=== PATIENT | female | born 1930 | race Caucasian/White ===

== ENCOUNTER 2017-03-19 13:08 | Emergency (ER) | payer MEDICARE, OTHER ==
[2017-03-19 13:31] VITALS: BP 134/60
--- NOTE | 2017-03-19 14:35 | EDM.PDOC ---
ED HPI GENERAL MEDICAL PROBLEM - General Chief Complaint: Lower Extremity Injury/Pain Stated Complaint: BILATERAL HIP PAIN Time Seen by Provider: 03/19/17 14:35 Source of Information: Reports: Patient, Family History Limitations: Reports: No Limitations - History of Present Illness INITIAL COMMENTS - FREE TEXT/NARRATIVE: pt had a hip fracture and Dr Deleon did surgery for that. Since the surgery she has had on going pain. She tends to favor thre rt hip and is stressing the left. She now has severe pain in the left hip. She is having trouble walking. Onset: Gradual Duration: Day(s): Location: Reports: Lower Extremity, Left, Lower Extremity, Right Associated Symptoms: Reports: No Other Symptoms Bilateral Hip Pain Score (Numeric/FACES): 5 - Related Data Allergies Allergy/AdvReac Type Severity Reaction Status Date / Time atorvastatin calcium Allergy Muscle Verified 03/19/17 13:38 [From Lipitor] Aches simvastatin Allergy Muscle Verified 03/19/17 13:38 Aches Home Meds: Home Meds Metoprolol Tartrate [Lopressor] 50 mg PO DAILY 11/03/13 [History] Nitroglycerin [Nitrostat] 0.4 mg SL ASDIRECTED PRN 11/03/13 [History] Furosemide [Furosemide] 40 mg PO DAILY 03/19/17 [History] Spironolactone [Spironolactone] 25 mg PO BID 03/19/17 [History] Past Medical History HEENT History: Reports: Cataract, Hard of Hearing Cardiovascular History: Reports: CAD, High Cholesterol, Hypertension, [place], Stents Other Cardiovascular History: stents placed in 2008 Gastrointestinal History: Reports: Chronic Constipation Genitourinary History: Reports: Urinary Incontinence 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: Musculoskeletal History: Reports: Back Pain, Chronic, Fracture, Osteoarthritis Other Musculoskeletal History: both ankles and wrist fractured in remote past Hematologic History: Reports: Anemia - Past Surgical History HEENT Surgical History: Reports: Cataract Surgery, Tonsillectomy Cardiovascular Surgical History: Reports: Coronary Artery Stent, Percutaneous Transluminal Angioplasty Musculoskeletal Surgical History: Reports: Hip Replacement Other Musculoskeletal Surgeries/Procedures:: right hip she states they put a new ball in Social & Family History - Tobacco Use Smoking Status *Q: Never Smoker Second Hand Smoke Exposure: No - Caffeine Use Caffeine Use: Reports: Coffee - Recreational Drug Use Recreational Drug Use: No Review of Systems - Review of Systems Review Of Systems: See Below Constitutional: Reports: No Symptoms Eyes: Reports: No Symptoms Ears: Reports: No Symptoms Nose: Reports: No Symptoms Mouth/Throat: Reports: No Symptoms Respiratory: Reports: No Symptoms Cardiovascular: Reports: No Symptoms GI/Abdominal: Reports: No Symptoms Genitourinary: Reports: No Symptoms Musculoskeletal: Reports: Other (pain in both hips. ) Skin: Reports: No Symptoms ED EXAM, GENERAL - Physical Exam Exam: See Below Free Text/Narrative:: Pt arrived with pain in both hips. She had surgery on the rt and has had chronic pain in the rt and she is over stressing the left and she has pain in that also. Exam Limited By: No Limitations General Appearance: Alert, Mild Distress Ears: Normal TMs Nose: Normal Inspection Throat/Mouth: Normal Inspection Head: Atraumatic Neck: Normal Inspection Respiratory/Chest: No Respiratory Distress Cardiovascular: Regular Rate, Rhythm GI/Abdominal: Soft Extremities: Other ( Both hips are tender to palpate. She had xrays which did not show sig abnormalities. ) Course - Vital Signs Last Recorded V/S: Last Vital Signs Temp 36.3 C 03/19/17 13:35 Pulse 72 03/19/17 13:35 Resp 14 03/19/17 13:35 BP 134/60 03/19/17 13:35 Pulse Ox 95 03/19/17 13:35 - Orders/Labs/Meds Labs: Laboratory Tests 03/19/17 03/19/17 Range/Units 15:14 15:14 WBC 6.9 (4.5-11.0) K/uL RBC 4.51 (3.30-5.50) M/uL Hgb 14.1 (12.0-15.0) g/dL Hct 41.5 (36.0-48.0) % MCV 92 (80-98) fL MCH 31 (27-31) pg MCHC 34 (32-36) % Plt Count 242 (150-400) K/uL Neut % (Auto) 69 H (36-66) % Lymph % (Auto) 15 L (24-44) % [place] % (Auto) 12 H (2-6) % Eos % (Auto) 4 (2-4) % Baso % (Auto) 1 (0-1) % Sodium 135 L (140-148) mmol/L Potassium 4.2 (3.6-5.2) mmol/L Chloride 101 (100-108) mmol/L Carbon Dioxide 29 (21-32) mmol/L Anion Gap 9.2 (5.0-14.0) mmol/L BUN 16 (7-18) mg/dL Creatinine 0.6 (0.6-1.0) mg/dL Est Cr Clr Drug Dosing 60.27 mL/min Estimated GFR (MDRD) > 60 (>60) Glucose 88 (74-106) mg/dL Calcium 9.3 (8.5-10.1) mg/dL Meds: Medications Discontinued Medications Generic Name Dose Route Start Last Admin Trade Name Freq PRN Reason Stop Dose Admin Ketorolac Tromethamine 60 mg 03/19/17 15:05 Toradol IM 03/19/17 15:06 ONETIME ONE - Re-Assessments/Exams Free Text/Narrative Re-Assessment/Exam: 03/19/17 15:52 pt was given tordol 60mg. Departure - Departure Time of Disposition: 15:52 Disposition: Home, Self-Care 01 Condition: Fair Clinical Impression: Left hip pain - Discharge Information Forms: ED Department Discharge Care Plan Goals: moist heat to the left hip, naprosyn 500mg bid, appt with Dr Suh for bilateral hip pain.
--- NOTE | 2017-03-19 14:56 | CR ---
Hip Min 2V w Pelvis Bi HISTORY: Hip pain bilaterally. COMPARISON: Plain films 03/23/2016. FINDINGS: Total right hip arthroplasty change. There is excellent alignment. No pelvic fracture or d iastases. Left hip appears unremarkable. Impression: No acute fracture in the hips or pelvis.
[2017-03-19] MEDS ORDERED: Ketorolac 60 MG/2 ML SDV IM ONE (15:05)
== END 2017-03-19 16:16 | disposition home or self-care (01) ==
LOC: JP.ED 13:08
DX: M25.552 Pain in left hip (principal); M25.551 Pain in right hip; I25.10 Atherosclerotic heart disease of native coronary artery without angina pectoris; I10 Essential (primary) hypertension; E78.00 Pure hypercholesterolemia, unspecified; I25.2 Old myocardial infarction; Z98.49 Cataract extraction status, unspecified eye; Z98.890 Other specified postprocedural states; Z96.649 Presence of unspecified artificial hip joint; Z79.899 Other long term (current) drug therapy; Z88.8 Allergy status to other drugs, medicaments and biological substances
CPT/HCPCS: 36415; 73521; 80048; 85025; 96372; 99283; 99284; J1885

== ENCOUNTER 2018-03-07 11:02 | Emergency (ER) | payer MEDICARE, OTHER ==
[2018-03-07 12:13] VITALS: BP 128/58
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
== END 2018-03-07 15:33 | disposition home or self-care (01) ==
LOC: JP.ED 11:02
DX: S20.319A Abrasion of unspecified front wall of thorax, initial encounter (principal); I25.10 Atherosclerotic heart disease of native coronary artery without angina pectoris; E78.00 Pure hypercholesterolemia, unspecified; I10 Essential (primary) hypertension; I25.2 Old myocardial infarction; V49.40XA Driver injured in collision with unspecified motor vehicles in traffic accident, initial encounter; Z88.8 Allergy status to other drugs, medicaments and biological substances; Z79.899 Other long term (current) drug therapy
CPT/HCPCS: 71250; 72131; 74176; 93005; 99284; 99284-25

== ENCOUNTER 2018-03-15 08:00 | Inpatient (IN) | payer MEDICARE, OTHER ==
[2018-03-15] MEDS ORDERED: Sodium Chloride 0.9% 1,000 ML IV SCH (08:45)
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
[2018-03-15] MEDS ORDERED: cefTRIAXone 1 GM in Sodium Chloride 0.9% 50 ML IV ONE (09:28)
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
[2018-03-15] MEDS ORDERED: Azithromycin 250 MG Tab PO ONE (11:00)
[2018-03-15] MEDS ORDERED: Ondansetron 4 MG Tab.DIS PO PRN (11:31)
[2018-03-15] MEDS ORDERED: Albuterol 0.083% 2.5 MG/3 ML Neb Soln NEB PRN (11:31)
[2018-03-15] MEDS ORDERED: traMADol 50 MG Tab PO PRN (11:31)
[2018-03-15] MEDS ORDERED: guaiFENesin/Dextromethorphan 100-10 MG/5 ML Soln 10 ML Cup PO PRN (11:31)
[2018-03-15] MEDS ORDERED: Ondansetron 4 MG/2 ML SDV IV PRN (11:31)
[2018-03-15] MEDS: Acetaminophen 325 MG Tab PO PRN (14:51)
[2018-03-15] MEDS: Sodium Chloride 0.9% 1,000 ML IV SCH ×3 (14:52→23:30)
[2018-03-15] MEDS ORDERED: Metoprolol Tartrate 5 MG/5 ML SDV IVPUSH ONE (23:44)
[2018-03-16] MEDS: Acetaminophen 325 MG Tab PO PRN ×2 (00:16→15:50)
[2018-03-16] MEDS: Metoprolol Tartrate 50 MG Tab PO SCH (08:11)
[2018-03-16] MEDS: Polyethylene Glycol 3350 Powder 17 GM Packet PO SCH (08:12)
[2018-03-16] MEDS: Azithromycin 250 MG Tab PO SCH (08:12)
--- NOTE | 2018-03-16 09:29 | CR ---
CHEST: 2 view CLINICAL HISTORY:Dyspnea COMPARISON:CT 07 March 2018 FINDINGS: There are patchy bilateral lower lobe densities There is a moderate compression deformity o f a lower dorsal vertebrae present previously described.. There are moderate patchy bibasal densities . The some of this was present on the prior CT but superimposed infiltrate is suspected. The heart is enlarged. There is a large retrocardiac hiatal hernia. There is some chronic elevation of the right hemidiaphragm. IMPRESSION: Moderate changes of COPD Patchy bibasal densities. Some of this was present on the left on prior CT. A right lower lobe infilt rate is not excluded Cardiomegaly Large retrocardiac hiatal hernia
[2018-03-16] MEDS ORDERED: cefTRIAXone 1 GM in Sodium Chloride 0.9% 50 ML IV SCH (11:00)
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
[2018-03-16] MEDS: Diltiazem IR 30 MG Tab PO SCH ×2 (13:50→19:46)
[2018-03-17] MEDS: Diltiazem IR 30 MG Tab PO SCH ×4 (02:43→19:21)
[2018-03-17] MEDS: Acetaminophen 325 MG Tab PO PRN ×2 (04:25→22:48)
[2018-03-17] MEDS ORDERED: Ibuprofen 400 MG Tab PO ONE ×2 (06:37→09:00)
[2018-03-17] MEDS: Azithromycin 250 MG Tab PO SCH (08:49)
[2018-03-17] MEDS: Metoprolol Tartrate 50 MG Tab PO SCH (08:50)
[2018-03-17] MEDS: Polyethylene Glycol 3350 Powder 17 GM Packet PO SCH (08:50)
[2018-03-17] MEDS ORDERED: Piperacillin/Tazobactam 3.375 GM in Sodium Chloride 0.9% 50 ML IV SCH (10:15)
[2018-03-17] MEDS ORDERED: Levofloxacin/Dextrose 5%-Water 750 MG in Premix Bag 1 BAG IV SCH (10:30)
--- NOTE | 2018-03-17 11:12 | CR ---
CHEST: Portable CLINICAL HISTORY:Hypoxia COMPARISON:03/15/2018 FINDINGS:Lung markings are exaggerated by portable 20 level.. There are increasing bilateral pulmona ry infiltrates. Vascularity is cephalized. There are increasing bilateral pleural effusions. Patient is a large retrocardiac hiatal hernia. There is a calcified mitral annulus IMPRESSION: Limited study due to poor story level. Vascular congestion with increasing infiltrates and bilateral pleural effusions. This is felt to rep resent CHF superimposed over chronic lung changes.
[2018-03-17] MEDS: Piperacillin/Tazobactam/Dext 3.375 GM in Premix Bag 1 BAG IV SCH ×3 (11:38→23:55)
[2018-03-17] MEDS ORDERED: Furosemide 40 MG/4 ML VIAL IVPUSH ONE ×2 (12:35→12:50)
[2018-03-17] MEDS: Norepinephrine 4 MG in Dextrose 5% in Water 246 ML IV SCH ×4 (13:15→20:35)
[2018-03-17] MEDS ORDERED: Sodium Chloride 0.9% 500 ML IV ONE (13:45)
[2018-03-17] MEDS ORDERED: Sodium Chloride 0.9% 500 ML IV STA (13:55)
[2018-03-17] MEDS: Sodium Chloride 0.9% 1,000 ML IV SCH (17:03)
--- NOTE | 2018-03-17 18:36 | PCM.PN ---
- General Info Date of Service: 03/17/18 Subjective Update: Ms. Lobato developed increased respiratory compromise and was transferred to the intensive care unit this morning, shortly after transfer developed acute respiratory arrest. She had requested DNR/DNI, so code was not called but she was bagged and then switched to BiPAP. At the time of arrest she had infrequent shallow respirations and was very cyanotic, heart rate was into the 30s with marked hypotension. She did receive fluids and because of ongoing hypotension was started on IV norepinephrine. With these interventions she is stabilized, now alert and interactive. Oxygenation has improved significantly with use of BiPAP and heart rate has stabilized. She continues to require norepinephrine to maintain adequate blood pressure. Lactic acid level was obtained and within normal range and this does appear to be all secondary to respiratory compromise. Troponin has been found to be elevated but this is likely secondary to demand ischemia in the setting of hypotension and hypoxia. She has denied any symptoms of chest pain or pressure, EKG shows no evidence of acute ST segment changes. - Review of Systems General: Reports: Fever, Weakness, Chills Pulmonary: Reports: Shortness of Breath. Denies: Cough, Sputum, Wheezing Cardiovascular: Denies: Chest Pain, Palpitations, Orthopnea, PND, Edema, Lightheadedness Gastrointestinal: Reports: No Symptoms - Patient Data Vitals - Most Recent: Last Vital Signs Temp 95.7 F 03/17/18 15:16 Pulse 80 03/17/18 16:40 Resp 22 H 03/17/18 16:40 BP 91/48 L 03/17/18 16:40 Pulse Ox 98 03/17/18 16:40 Weight - Most Recent: 121 lb 15.99 oz I&O - Last 24 Hours: Intake & Output 03/17/18 03/17/18 03/17/18 06:59 14:59 22:59 Intake Total 240 480 935 Output Total 200 Balance 240 480 735 Lab Results Last 24 Hours: Laboratory Results - last 24 hr 03/17/18 03/17/18 03/17/18 Range/Units 09:59 10:19 10:19 WBC 7.2 (4.5-11.0) K/uL RBC 4.52 (3.30-5.50) M/uL Hgb 13.3 (12.0-15.0) g/dL Hct 40.7 (36.0-48.0) % MCV 90 (80-98) fL MCH 29 (27-31) pg MCHC 33 (32-36) % Plt Count 85 L (150-400) K/uL Add Manual Diff Yes Neutrophils % (Manual) 89 H (36-66) % Band Neutrophils % 9 (5-11) % Lymphocytes % (Manual) 1 L (24-44) % Monocytes % (Manual) 1 L (2-6) % Puncture Site Lt radial ABG pH 7.285 L (7.350-7.450) ABG pCO2 51.5 H (35.0-42.0) mmHg ABG pO2 76.1 (75.0-100.0) mmHg ABG HCO3 23.7 (22.0-26.0) mmol/L ABG Total CO2 21.7 (21.0-25.0) mmol/L ABG O2 Saturation 93.9 L (95.0-98.0) % ABG O2 Content 17.4 (15.0-23.0) %vol ABG Base Excess -3.0 mm/L ABG Hemoglobin 13.5 (12.0-16.0) g/dL ABG Oxyhemoglobin 91.9 % ABG Carboxyhemoglobin 1.5 (0.0-1.6) % ABG Methemoglobin 0.6 % Rommel Test Passed O2 Delivery Device Nasal cannula Oxygen Flow Rate L Sodium 134 L (140-148) mmol/L Potassium 4.1 (3.6-5.2) mmol/L Chloride 99 L (100-108) mmol/L Carbon Dioxide 27 (21-32) mmol/L Anion Gap 12.1 (5.0-14.0) mmol/L BUN 18 (7-18) mg/dL Creatinine 0.9 (0.6-1.0) mg/dL Est Cr Clr Drug Dosing 39.75 mL/min Estimated GFR (MDRD) 60 (>60) Glucose 193 H (74-106) mg/dL Lactic Acid (0.4-2.0) mmol/L Calcium 8.4 L (8.5-10.1) mg/dL Magnesium (1.8-2.4) mg/dL Total Bilirubin 0.7 (0.2-1.0) mg/dL AST 115 H D (15-37) U/L ALT 84 H (12-78) U/L Alkaline Phosphatase 146 H (46-116) U/L Troponin I (0.000-0.056) ng/mL Total Protein 6.4 (6.4-8.2) g/dL Albumin 2.5 L (3.4-5.0) g/dL Globulin 3.9 H (2.3-3.5) g/dL Albumin/Globulin Ratio 0.6 L (1.2-2.2) 03/17/18 03/17/18 03/17/18 Range/Units 10:19 10:19 15:47 WBC (4.5-11.0) K/uL RBC (3.30-5.50) M/uL Hgb (12.0-15.0) g/dL Hct (36.0-48.0) % MCV (80-98) fL MCH (27-31) pg MCHC (32-36) % Plt Count (150-400) K/uL Add Manual Diff Neutrophils % (Manual) (36-66) % Band Neutrophils % (5-11) % Lymphocytes % (Manual) (24-44) % Monocytes % (Manual) (2-6) % Puncture Site Lt radial ABG pH 7.310 L (7.350-7.450) ABG pCO2 46.9 H (35.0-42.0) mmHg ABG pO2 150.0 H (75.0-100.0) mmHg ABG HCO3 22.9 (22.0-26.0) mmol/L ABG Total CO2 21.0 (21.0-25.0) mmol/L ABG O2 Saturation 98.9 H (95.0-98.0) % ABG O2 Content 17.9 (15.0-23.0) %vol ABG Base Excess -3.0 mm/L ABG Hemoglobin 12.8 (12.0-16.0) g/dL ABG Oxyhemoglobin 98.0 % ABG Carboxyhemoglobin 0.3 (0.0-1.6) % ABG Methemoglobin 0.6 % Rommel Test Passed O2 Delivery Device Nasal cannula Oxygen Flow Rate L Sodium (140-148) mmol/L Potassium (3.6-5.2) mmol/L Chloride (100-108) mmol/L Carbon Dioxide (21-32) mmol/L Anion Gap (5.0-14.0) mmol/L BUN (7-18) mg/dL Creatinine (0.6-1.0) mg/dL Est Cr Clr Drug Dosing mL/min Estimated GFR (MDRD) (>60) Glucose (74-106) mg/dL Lactic Acid 1.6 (0.4-2.0) mmol/L Calcium (8.5-10.1) mg/dL Magnesium 1.8 (1.8-2.4) mg/dL Total Bilirubin (0.2-1.0) mg/dL AST (15-37) U/L ALT (12-78) U/L Alkaline Phosphatase (46-116) U/L Troponin I (0.000-0.056) ng/mL Total Protein (6.4-8.2) g/dL Albumin (3.4-5.0) g/dL Globulin (2.3-3.5) g/dL Albumin/Globulin Ratio (1.2-2.2) 03/17/18 03/17/18 Range/Units 16:04 16:04 WBC (4.5-11.0) K/uL RBC (3.30-5.50) M/uL Hgb (12.0-15.0) g/dL Hct (36.0-48.0) % MCV (80-98) fL MCH (27-31) pg MCHC (32-36) % Plt Count (150-400) K/uL Add Manual Diff Neutrophils % (Manual) (36-66) % Band Neutrophils % (5-11) % Lymphocytes % (Manual) (24-44) % Monocytes % (Manual) (2-6) % Puncture Site ABG pH (7.350-7.450) ABG pCO2 (35.0-42.0) mmHg ABG pO2 (75.0-100.0) mmHg ABG HCO3 (22.0-26.0) mmol/L ABG Total CO2 (21.0-25.0) mmol/L ABG O2 Saturation (95.0-98.0) % ABG O2 Content (15.0-23.0) %vol ABG Base Excess mm/L ABG Hemoglobin (12.0-16.0) g/dL ABG Oxyhemoglobin % ABG Carboxyhemoglobin (0.0-1.6) % ABG Methemoglobin % Rommel Test O2 Delivery Device Oxygen Flow Rate L Sodium 134 L (140-148) mmol/L Potassium 3.8 (3.6-5.2) mmol/L Chloride 100 (100-108) mmol/L Carbon Dioxide 23 (21-32) mmol/L Anion Gap 14.8 H (5.0-14.0) mmol/L BUN 22 H (7-18) mg/dL Creatinine 1.2 H (0.6-1.0) mg/dL Est Cr Clr Drug Dosing 29.81 mL/min Estimated GFR (MDRD) 43 L (>60) Glucose 205 H (74-106) mg/dL Lactic Acid (0.4-2.0) mmol/L Calcium 8.4 L (8.5-10.1) mg/dL Magnesium (1.8-2.4) mg/dL Total Bilirubin (0.2-1.0) mg/dL AST (15-37) U/L ALT (12-78) U/L Alkaline Phosphatase (46-116) U/L Troponin I 0.849 H* (0.000-0.056) ng/mL Total Protein (6.4-8.2) g/dL Albumin (3.4-5.0) g/dL Globulin (2.3-3.5) g/dL Albumin/Globulin Ratio (1.2-2.2) Ismael Results Last 24 Hours: Microbiology 03/15/18 08:45 Aerobic Blood Culture - Preliminary Blood - Arm, Right NO GROWTH AFTER 2 DAYS Anaerobic Blood Culture - Preliminary NO GROWTH AFTER 2 DAYS 03/15/18 08:45 Aerobic Blood Culture - Preliminary Blood - Arm, Right NO GROWTH AFTER 2 DAYS Anaerobic Blood Culture - Preliminary NO GROWTH AFTER 2 DAYS Med Orders - Current: Current Medications Acetaminophen (Tylenol) 650 mg PO Q4H PRN PRN Reason: Pain (Mild 1-3)/fever Last Admin: 03/17/18 04:25 Dose: 650 mg Albuterol (Proventil Neb Soln) 2.5 mg NEB Q4H PRN PRN Reason: Shortness Of Breath/wheezing Last Admin: 03/15/18 22:41 Dose: 2.5 mg Diltiazem HCl (Cardizem) 30 mg PO Q6H [facility] Last Admin: 03/17/18 14:07 Dose: Not Given Guaifenesin/Dextromethorphan (Robitussin Dm) 10 ml PO Q6H PRN PRN Reason: Cough Levofloxacin/Dextrose 750 mg/ (Premix) 150 mls @ 100 mls/hr IV Q48H [facility] Last Admin: 03/17/18 10:42 Dose: 100 mls/hr Piperacillin/Tazobactam/ (Dextrose 3.375 gm/ Premix) 50 mls @ 100 mls/hr IV Q6H [facility] Last Admin: 03/17/18 17:02 Dose: 100 mls/hr Norepinephrine Bitartrate 4 mg (/ Dextrose/Water) 250 mls @ 7.5 mls/hr IV TITRATE [facility]; Protocol Last Titration: 03/17/18 15:24 Dose: 10 mcg/min, 37.5 mls/hr Metoprolol Tartrate (Lopressor) 50 mg PO DAILY [facility] Last Admin: 03/17/18 08:50 Dose: 50 mg Ondansetron HCl (Zofran Odt) 4 mg PO Q6H PRN PRN Reason: Nausea able to take PO Ondansetron HCl (Zofran) 4 mg IV Q6H PRN PRN Reason: Nausea/Vomiting Polyethylene Glycol (Miralax) 17 gm PO DAILY [facility] Last Admin: 03/17/18 08:50 Dose: 17 gm Tramadol HCl (Ultram) 50 mg PO Q6H PRN PRN Reason: Pain Discontinued Medications Azithromycin (Zithromax) 500 mg PO ONETIME ONE Stop: 03/15/18 11:01 Last Admin: 03/15/18 10:51 Dose: 500 mg Azithromycin (Zithromax) 500 mg PO DAILY [facility] Last Admin: 03/17/18 08:49 Dose: 500 mg Furosemide (Lasix) 20 mg IVPUSH NOW ONE Stop: 03/17/18 12:36 Last Admin: 03/17/18 16:27 Dose: Not Given Furosemide (Lasix) 40 mg IVPUSH NOW ONE Stop: 03/17/18 12:51 Last Admin: 03/17/18 15:35 Dose: 40 mg Sodium Chloride (Normal Saline) 1,000 mls @ 500 mls/hr IV ASDIRECTED [facility] Last Admin: 03/15/18 09:18 Dose: 500 mls/hr Ceftriaxone Sodium 1 gm/ (Sodium Chloride) 50 mls @ 100 mls/hr IV ONETIME ONE Stop: 03/15/18 09:57 Last Admin: 03/15/18 10:24 Dose: 100 mls/hr Ceftriaxone Sodium 1 gm/ (Sodium Chloride) 50 mls @ 100 mls/hr IV Q24H [facility] Last Admin: 03/16/18 11:12 Dose: 100 mls/hr Sodium Chloride (Normal Saline) 1,000 mls @ 50 mls/hr IV ASDIRECTED [facility] Last Admin: 03/17/18 17:03 Dose: 50 mls/hr Sodium Chloride (Normal Saline) 500 mls @ 500 mls/hr IV ONETIME ONE Stop: 03/17/18 14:44 Last Admin: 03/17/18 14:00 Dose: 500 mls/hr Ibuprofen (Motrin) 400 mg PO ONETIME ONE Stop: 03/17/18 09:01 Last Admin: 03/17/18 08:51 Dose: Not Given Metoprolol Tartrate (Lopressor) 5 mg IVPUSH ONETIME ONE Stop: 03/15/18 23:45 Last Admin: 03/15/18 23:53 Dose: 5 mg - Exam Quality Assessment: Supplemental Oxygen (BiPAP), DVT Prophylaxis General: Alert, Oriented, Cooperative, Moderate Distress Lungs: Decreased Breath Sounds, Rales. No: Rhonchi, Rub, Wheezing Cardiovascular: Regular Rate, Regular Rhythm, No Murmurs GI/Abdominal Exam: Soft, Non-Tender, No Organomegaly, No Distention Extremities: Non-Tender, No Pedal Edema Skin: Warm, Dry, Intact - Problem List Review Problem List Initiated/Reviewed/Updated: Yes - My Orders Last 24 Hours: My Active Orders 03/17/18 09:59 Blood Culture x2 Reflex Set [OM.PC] Urgent 03/17/18 10:02 Patient Status [ADT] Routine Cardiac Monitoring [RC] .As Directed 03/17/18 10:14 CULTURE BLOOD [BC] Urgent 03/17/18 10:19 CULTURE BLOOD [BC] Urgent 03/17/18 10:30 Levofloxacin/Dextrose 5%-Water [Levaquin in D5W 750 MG/150 ML] 750 mg Premix Bag 1 bag IV Q48H 03/17/18 12:00 Piperacillin/Tazobactam/Dext [Zosyn in Dextrose Iso-Osmotic 3.375 GM] 3.375 gm Premix Bag 1 bag IV Q6H 03/17/18 13:15 Norepinephrine [Levophed] 4 mg Dextrose 5% in Water 246 ml IV TITRATE 03/17/18 15:45 Mullen Catheter Insertion [Insert Urinary Catheter] [OM.PC] Q24H 03/17/18 15:46 Urinary Catheter Assessment [RC] ASDIRECTED 03/17/18 15:47 EKG 12 Lead [EK] Stat 03/17/18 15:48 EKG Documentation Completion [RC] ASDIRECTED 03/17/18 22:00 TROPONIN I [CHEM] Stat 03/18/18 05:00 Chest 1V Frontal [CR] Timed BLOOD GAS ARTERIAL [BG] Timed CBC WITH AUTO DIFF [HEME] Timed COMPREHENSIVE METABOLIC PN,CMP [CHEM] Timed MAGNESIUM [CHEM] Timed TROPONIN I [CHEM] Timed - Plan Plan:: ASSESSMENT AND PLAN - Right lower lobe pneumonia- community acquired pneumonia with possible contribution from hypoventilation with recent chest wall trauma. Severe respiratory compromise today as noted below, hypotension requiring IV norepinephrine, lactic acid level normal. -Discontinue ceftriaxone and azithromycin -Repeat blood cultures pending -Or aggressive antibiotic therapy initiated with Zosyn and levofloxacin -Follow-up blood cultures -IV norepinephrine Hypoxic and hypercapnic respiratory failure-likely secondary to pneumonia, may have a component of fluid overload, although IV fluids were discontinued yesterday morning. -Non-Invasive positive pressure ventilation -Follow-up ABGs in a.m. Atrial fibrillation with rapid ventricular resolved -Hold metoprolol 50 mg daily, because of hypotension -Discontinue Diltiazem Coronary artery disease - history of previous myocardial infarction and stenting about 9 years ago. No active anginal symptoms at this time. Troponin found to be elevated, likely demand ischemia in the setting of hypotension and hypoxia -Continue medical management -Follow-up troponin level tonight and again in a.m. Maintenance issues - - DVT prophylaxis - Lovenox 40 mg subcutaneous daily - GI prophylaxis - not indicated - Nutrition - heart healthy - Mullen catheter - not indicated CODE STATUS - DNR/DNI Admission justification - This patient will be admitted for inpatient services and is medically appropriate meeting medical necessity for inpatient admission as outlined in my documentation. I reasonably expect the patient will require inpatient services that span a period time over 2 midnights. I reasonably expect this patient to be discharged or transferred within 96 hours after admission to the Critical [facility]. Disposition - anticipate discharge home after the hospital stay Primary care physician - [facility] internal medicine group
[2018-03-17] MEDS ORDERED: Enoxaparin 40 MG/0.4 ML Syringe SUBCUT SCH (19:00)
[2018-03-18] MEDS: Norepinephrine 4 MG in Dextrose 5% in Water 246 ML IV SCH ×4 (03:32→14:52)
[2018-03-18] MEDS: Piperacillin/Tazobactam/Dext 3.375 GM in Premix Bag 1 BAG IV SCH ×4 (05:48→23:32)
[2018-03-18] MEDS ORDERED: Digoxin 500 MCG/2 ML Amp IVPUSH STA (06:17)
[2018-03-18] MEDS ORDERED: Digoxin 500 MCG/2 ML Amp IVPUSH ONE (07:30)
[2018-03-18] MEDS ORDERED: Furosemide 40 MG/4 ML VIAL IVPUSH ONE (08:09)
--- NOTE | 2018-03-18 08:43 | CR ---
CHEST: Portable CLINICAL HISTORY:Respiratory failure COMPARISON:03/17/2018 FINDINGS: There is a low inspiratory level. There are persistent diffuse bilateral infiltrates simila r to prior study. The vascularity is congested. There are bilateral pleural effusions. IMPRESSION: Persistent vascular congestion and bilateral pulmonary infiltrates. Considering slight t echnical differences, appearance is similar to prior exam.
[2018-03-18] MEDS: Polyethylene Glycol 3350 Powder 17 GM Packet PO SCH (09:21)
[2018-03-18] MEDS: Potassium Chloride 20 MEQ, Lidocaine 1% 2 ML in Sodium Chloride 0.9% 100 ML IV SCH ×2 (10:22→12:14)
--- NOTE | 2018-03-18 11:28 | CR ---
CHEST: Portable CLINICAL HISTORY:PICC line placement COMPARISON:03/18/2018 FINDINGS: There is a PICC line from the right upper extremity. The tip is in the subclavian vein. Bi lateral infiltrates persist. There is no pneumothorax. IMPRESSION: PICC line is in the right subclavian vein Persistent bilateral infiltrates similar to prior study
--- NOTE | 2018-03-18 11:28 | CR ---
CHEST: Portable CLINICAL HISTORY:PICC line placement COMPARISON:Earlier same day FINDINGS: The PICC line has been advanced into the mid right atrium. Bilateral infiltrates are simil ar as well as vascular cephalization. IMPRESSION: PICC line is advanced into the mid right atrium No pneumothorax. Persistent bilateral infiltrates and vascular cephalization
[2018-03-18] MEDS ORDERED: Amiodarone 150 MG/3 ML SDV IVPUSH ONE (12:00)
--- NOTE | 2018-03-18 12:06 | PCM.PN ---
- General Info Date of Service: 03/18/18 Subjective Update: Ms. Lobato has been more stable over the past 24 hours, saturations have remained adequate with continuous use of noninvasive positive pressure ventilation. Blood pressure is remained fairly stable with use of IV norepinephrine and urine output has been adequate, renal function mildly decreased since yesterday. During the night she did develop atrial fibrillation with rapid ventricular response again she's received 2 doses of digoxin but despite this continues to have heart rates in the 120-150 range. She denies discomfort, no chest pain and feels only mildly short of breath with use of the BiPAP. Troponin level has improved since the initially level yesterday. - Review of Systems General: Reports: Weakness. Denies: Fever, Chills Pulmonary: Reports: Shortness of Breath. Denies: Pleuritic Chest Pain, Cough, Sputum, Hemoptysis, Wheezing Cardiovascular: Reports: Dyspnea on Exertion. Denies: Chest Pain, Palpitations , Orthopnea, PND, Edema, Lightheadedness Gastrointestinal: Reports: No Symptoms Genitourinary: Reports: No Symptoms - Patient Data Vitals - Most Recent: Last Vital Signs Temp 97.7 F 03/18/18 07:00 Pulse 141 H 03/18/18 11:00 Resp 27 H 03/18/18 11:00 BP 105/55 L 03/18/18 11:00 Pulse Ox 90 L 03/18/18 09:00 Weight - Most Recent: 121 lb 15.99 oz I&O - Last 24 Hours: Intake & Output 03/17/18 03/18/18 03/18/18 22:59 06:59 14:59 Intake Total 935 850 Output Total 955 675 350 Balance -20 175 -350 Lab Results Last 24 Hours: Laboratory Results - last 24 hr 03/17/18 03/17/18 03/17/18 Range/Units 10:19 15:47 16:04 WBC (4.5-11.0) K/uL RBC (3.30-5.50) M/uL Hgb (12.0-15.0) g/dL Hct (36.0-48.0) % MCV (80-98) fL MCH (27-31) pg MCHC (32-36) % Plt Count (150-400) K/uL Add Manual Diff Neutrophils % (Manual) 89 H (36-66) % Band Neutrophils % 9 (5-11) % Lymphocytes % (Manual) 1 L (24-44) % Monocytes % (Manual) 1 L (2-6) % Puncture Site Lt radial ABG pH 7.310 L (7.350-7.450) ABG pCO2 46.9 H (35.0-42.0) mmHg ABG pO2 150.0 H (75.0-100.0) mmHg ABG HCO3 22.9 (22.0-26.0) mmol/L ABG Total CO2 21.0 (21.0-25.0) mmol/L ABG O2 Saturation 98.9 H (95.0-98.0) % ABG O2 Content 17.9 (15.0-23.0) %vol ABG Base Excess -3.0 mm/L ABG Hemoglobin 12.8 (12.0-16.0) g/dL ABG Oxyhemoglobin 98.0 % ABG Carboxyhemoglobin 0.3 (0.0-1.6) % ABG Methemoglobin 0.6 % Rommel Test Passed O2 Delivery Device Nasal cannula Oxygen Flow Rate L Sodium (140-148) mmol/L Potassium (3.6-5.2) mmol/L Chloride (100-108) mmol/L Carbon Dioxide (21-32) mmol/L Anion Gap (5.0-14.0) mmol/L BUN (7-18) mg/dL Creatinine (0.6-1.0) mg/dL Est Cr Clr Drug Dosing mL/min Estimated GFR (MDRD) (>60) Glucose (74-106) mg/dL Calcium (8.5-10.1) mg/dL Magnesium (1.8-2.4) mg/dL Total Bilirubin (0.2-1.0) mg/dL AST (15-37) U/L ALT (12-78) U/L Alkaline Phosphatase (46-116) U/L Troponin I 0.849 H* (0.000-0.056) ng/mL Total Protein (6.4-8.2) g/dL Albumin (3.4-5.0) g/dL Globulin (2.3-3.5) g/dL Albumin/Globulin Ratio (1.2-2.2) 03/17/18 03/17/18 03/18/18 Range/Units 16:04 22:10 05:15 WBC (4.5-11.0) K/uL RBC (3.30-5.50) M/uL Hgb (12.0-15.0) g/dL Hct (36.0-48.0) % MCV (80-98) fL MCH (27-31) pg MCHC (32-36) % Plt Count (150-400) K/uL Add Manual Diff Neutrophils % (Manual) (36-66) % Band Neutrophils % (5-11) % Lymphocytes % (Manual) (24-44) % Monocytes % (Manual) (2-6) % Puncture Site L brachial ABG pH 7.419 (7.350-7.450) ABG pCO2 38.6 (35.0-42.0) mmHg ABG pO2 159.0 H (75.0-100.0) mmHg ABG HCO3 24.5 (22.0-26.0) mmol/L ABG Total CO2 21.6 (21.0-25.0) mmol/L ABG O2 Saturation 99.2 H (95.0-98.0) % ABG O2 Content 18.7 (15.0-23.0) %vol ABG Base Excess 0.6 mm/L ABG Hemoglobin 13.4 (12.0-16.0) g/dL ABG Oxyhemoglobin 97.8 % ABG Carboxyhemoglobin 0.7 (0.0-1.6) % ABG Methemoglobin 0.7 % Rommel Test O2 Delivery Device Bipap Oxygen Flow Rate L Sodium 134 L (140-148) mmol/L Potassium 3.8 (3.6-5.2) mmol/L Chloride 100 (100-108) mmol/L Carbon Dioxide 23 (21-32) mmol/L Anion Gap 14.8 H (5.0-14.0) mmol/L BUN 22 H (7-18) mg/dL Creatinine 1.2 H (0.6-1.0) mg/dL Est Cr Clr Drug Dosing 29.81 mL/min Estimated GFR (MDRD) 43 L (>60) Glucose 205 H (74-106) mg/dL Calcium 8.4 L (8.5-10.1) mg/dL Magnesium (1.8-2.4) mg/dL Total Bilirubin (0.2-1.0) mg/dL AST (15-37) U/L ALT (12-78) U/L Alkaline Phosphatase (46-116) U/L Troponin I 0.511 H* (0.000-0.056) ng/mL Total Protein (6.4-8.2) g/dL Albumin (3.4-5.0) g/dL Globulin (2.3-3.5) g/dL Albumin/Globulin Ratio (1.2-2.2) 03/18/18 03/18/18 Range/Units 05:20 05:20 WBC 6.3 (4.5-11.0) K/uL RBC 4.46 (3.30-5.50) M/uL Hgb 13.4 (12.0-15.0) g/dL Hct 39.1 (36.0-48.0) % MCV 88 (80-98) fL MCH 30 (27-31) pg MCHC 34 (32-36) % Plt Count 55 L (150-400) K/uL Add Manual Diff Yes Neutrophils % (Manual) 38 (36-66) % Band Neutrophils % 56 H (5-11) % Lymphocytes % (Manual) 5 L (24-44) % Monocytes % (Manual) 1 L (2-6) % Puncture Site ABG pH (7.350-7.450) ABG pCO2 (35.0-42.0) mmHg ABG pO2 (75.0-100.0) mmHg ABG HCO3 (22.0-26.0) mmol/L ABG Total CO2 (21.0-25.0) mmol/L ABG O2 Saturation (95.0-98.0) % ABG O2 Content (15.0-23.0) %vol ABG Base Excess mm/L ABG Hemoglobin (12.0-16.0) g/dL ABG Oxyhemoglobin % ABG Carboxyhemoglobin (0.0-1.6) % ABG Methemoglobin % Rommel Test O2 Delivery Device Oxygen Flow Rate L Sodium 137 L (140-148) mmol/L Potassium 3.1 L (3.6-5.2) mmol/L Chloride 101 (100-108) mmol/L Carbon Dioxide 24 (21-32) mmol/L Anion Gap 15.1 H (5.0-14.0) mmol/L BUN 26 H (7-18) mg/dL Creatinine 1.3 H (0.6-1.0) mg/dL Est Cr Clr Drug Dosing 27.52 mL/min Estimated GFR (MDRD) 39 L (>60) Glucose 107 H (74-106) mg/dL Calcium 8.4 L (8.5-10.1) mg/dL Magnesium 1.8 (1.8-2.4) mg/dL Total Bilirubin 1.0 (0.2-1.0) mg/dL AST 115 H (15-37) U/L ALT 80 H (12-78) U/L Alkaline Phosphatase 122 H (46-116) U/L Troponin I 0.376 H* (0.000-0.056) ng/mL Total Protein 5.7 L (6.4-8.2) g/dL Albumin 2.1 L (3.4-5.0) g/dL Globulin 3.6 H (2.3-3.5) g/dL Albumin/Globulin Ratio 0.6 L (1.2-2.2) Ismael Results Last 24 Hours: Microbiology 03/17/18 10:14 Aerobic Blood Culture - Preliminary Blood - Arm, Right NO GROWTH AFTER 1 DAY Anaerobic Blood Culture - Preliminary NO GROWTH AFTER 1 DAY 03/17/18 10:19 Aerobic Blood Culture - Preliminary Blood - Arterial Line - Direct Stick NO GROWTH AFTER 1 DAY Anaerobic Blood Culture - Preliminary NO GROWTH AFTER 1 DAY 03/15/18 08:45 Aerobic Blood Culture - Preliminary Blood - Arm, Right NO GROWTH AFTER 3 DAYS Anaerobic Blood Culture - Preliminary NO GROWTH AFTER 3 DAYS 03/15/18 08:45 Aerobic Blood Culture - Preliminary Blood - Arm, Right NO GROWTH AFTER 3 DAYS Anaerobic Blood Culture - Preliminary NO GROWTH AFTER 3 DAYS Med Orders - Current: Current Medications Acetaminophen (Tylenol) 650 mg PO Q4H PRN PRN Reason: Pain (Mild 1-3)/fever Last Admin: 03/17/18 22:48 Dose: 650 mg Albuterol (Proventil Neb Soln) 2.5 mg NEB Q4H PRN PRN Reason: Shortness Of Breath/wheezing Last Admin: 03/15/18 22:41 Dose: 2.5 mg Amiodarone HCl (Cordarone) 150 mg IVPUSH ONETIME ONE; Protocol Stop: 03/18/18 12:01 Guaifenesin/Dextromethorphan (Robitussin Dm) 10 ml PO Q6H PRN PRN Reason: Cough Piperacillin/Tazobactam/ (Dextrose 3.375 gm/ Premix) 50 mls @ 100 mls/hr IV Q6H JESSICA Last Admin: 03/18/18 11:26 Dose: 100 mls/hr Norepinephrine Bitartrate 4 mg (/ Dextrose/Water) 250 mls @ 7.5 mls/hr IV TITRATE JESSICA; Protocol Last Titration: 03/18/18 09:24 Dose: 5 mcg/min, 18.75 mls/hr Potassium Chloride 20 meq/Lidocaine HCl 2 ml/ Sodium Chloride 112 mls @ 56 mls/ hr IV Q2H JESSICA Stop: 03/18/18 13:59 Last Admin: 03/18/18 10:22 Dose: 56 mls/hr Amiodarone HCl 450 mg/ (Dextrose/Water) 250 mls @ 33.33 mls/hr IV ASDIRECTED [facility]; Protocol Doxycycline Hyclate 100 mg/ (Sodium Chloride) 100 mls @ 100 mls/hr IV Q12H JESSICA Ondansetron HCl (Zofran Odt) 4 mg PO Q6H PRN PRN Reason: Nausea able to take PO Ondansetron HCl (Zofran) 4 mg IV Q6H PRN PRN Reason: Nausea/Vomiting Polyethylene Glycol (Miralax) 17 gm PO DAILY [facility] Last Admin: 03/18/18 09:21 Dose: 17 gm Tramadol HCl (Ultram) 50 mg PO Q6H PRN PRN Reason: Pain Last Admin: 03/18/18 00:05 Dose: 50 mg Discontinued Medications Azithromycin (Zithromax) 500 mg PO ONETIME ONE Stop: 03/15/18 11:01 Last Admin: 03/15/18 10:51 Dose: 500 mg Azithromycin (Zithromax) 500 mg PO DAILY [facility] Last Admin: 03/17/18 08:49 Dose: 500 mg Digoxin (Lanoxin) 250 mcg IVPUSH ONETIME STA Stop: 03/18/18 06:18 Last Admin: 03/18/18 06:26 Dose: 250 mcg Digoxin (Lanoxin) 250 mcg IVPUSH ONETIME ONE Stop: 03/18/18 07:31 Last Admin: 03/18/18 07:30 Dose: 250 mcg Diltiazem HCl (Cardizem) 30 mg PO Q6H [facility] Last Admin: 03/17/18 19:21 Dose: 30 mg Enoxaparin Sodium (Lovenox) 40 mg SUBCUT DAILY [facility] Last Admin: 03/18/18 08:23 Dose: Not Given Furosemide (Lasix) 20 mg IVPUSH NOW ONE Stop: 03/17/18 12:36 Last Admin: 03/17/18 16:27 Dose: Not Given Furosemide (Lasix) 40 mg IVPUSH NOW ONE Stop: 03/17/18 12:51 Last Admin: 03/17/18 15:35 Dose: 40 mg Furosemide (Lasix) 40 mg IVPUSH NOW ONE Stop: 03/18/18 08:10 Last Admin: 03/18/18 09:21 Dose: 40 mg Sodium Chloride (Normal Saline) 1,000 mls @ 500 mls/hr IV ASDIRECTED [facility] Last Admin: 03/15/18 09:18 Dose: 500 mls/hr Ceftriaxone Sodium 1 gm/ (Sodium Chloride) 50 mls @ 100 mls/hr IV ONETIME ONE Stop: 03/15/18 09:57 Last Admin: 03/15/18 10:24 Dose: 100 mls/hr Ceftriaxone Sodium 1 gm/ (Sodium Chloride) 50 mls @ 100 mls/hr IV Q24H [facility] Last Admin: 03/16/18 11:12 Dose: 100 mls/hr Sodium Chloride (Normal Saline) 1,000 mls @ 50 mls/hr IV ASDIRECTED [facility] Last Admin: 03/17/18 17:03 Dose: 50 mls/hr Levofloxacin/Dextrose 750 mg/ (Premix) 150 mls @ 100 mls/hr IV Q48H [facility] Last Admin: 03/17/18 10:42 Dose: 100 mls/hr Sodium Chloride (Normal Saline) 500 mls @ 500 mls/hr IV ONETIME ONE Stop: 03/17/18 14:44 Last Admin: 03/17/18 14:00 Dose: 500 mls/hr Ibuprofen (Motrin) 400 mg PO ONETIME ONE Stop: 03/17/18 09:01 Last Admin: 03/17/18 08:51 Dose: Not Given Metoprolol Tartrate (Lopressor) 50 mg PO DAILY [facility] Last Admin: 03/17/18 08:50 Dose: 50 mg Metoprolol Tartrate (Lopressor) 5 mg IVPUSH ONETIME ONE Stop: 03/15/18 23:45 Last Admin: 03/15/18 23:53 Dose: 5 mg - Exam Quality Assessment: Supplemental Oxygen (Noninvasive positive pressure ventilation), Central Line/PICC, Urine Catheter, DVT Prophylaxis General: Alert, Oriented, Cooperative, Mild Distress Lungs: Clear to Auscultation, Normal Respiratory Effort Cardiovascular: No Murmurs, Irregular Rhythm, Tachycardia GI/Abdominal Exam: Soft, Non-Tender, No Organomegaly, No Distention Extremities: Non-Tender, No Pedal Edema Skin: Warm, Dry, Intact - Problem List Review Problem List Initiated/Reviewed/Updated: Yes - My Orders Last 24 Hours: My Active Orders 03/17/18 12:00 Piperacillin/Tazobactam/Dext [Zosyn in Dextrose Iso-Osmotic 3.375 GM] 3.375 gm Premix Bag 1 bag IV Q6H 03/17/18 13:15 Norepinephrine [Levophed] 4 mg Dextrose 5% in Water 246 ml IV TITRATE 03/17/18 15:46 Urinary Catheter Assessment [RC] ASDIRECTED 03/17/18 15:47 EKG 12 Lead [EK] Stat 03/17/18 15:48 EKG Documentation Completion [RC] ASDIRECTED 03/18/18 08:20 Sequential Compression Device [OM.PC] Routine 03/18/18 09:38 Consult to PICC Team [CONS] Routine Central Venous Line Insertion [OM.PC] Routine 03/18/18 10:00 Potassium Chloride 20 meq Lidocaine 1% [Xylocaine 1%] 2 ml Sodium Chloride 0.9 % [Normal Saline] 100 ml IV Q2H 03/18/18 12:00 Amiodarone [Cordarone] 150 mg IVPUSH ONETIME ONE Amiodarone [Cordarone] 450 mg Dextrose 5% in Water 241 ml IV ASDIRECTED Doxycycline [Vibramycin] 100 mg Sodium Chloride 0.9% [Normal Saline] 100 ml IV Q12H 03/18/18 15:45 Mullen Catheter Insertion [Insert Urinary Catheter] [OM.PC] Q24H 03/19/18 05:00 Chest 1V Frontal [CR] Timed CBC WITH AUTO DIFF [HEME] Timed COMPREHENSIVE METABOLIC PN,CMP [CHEM] Timed DIGOXIN [CHEM] Timed MAGNESIUM [CHEM] Timed TROPONIN I [CHEM] Timed - Plan Plan:: ASSESSMENT AND PLAN - Right lower lobe pneumonia- community acquired pneumonia with possible contribution from hypoventilation with recent chest wall trauma. She has been afebrile over the past 24 hours, continues to require norepinephrine to support blood pressure, probable underlying sepsis secondary to pneumonia. -Continue Zosyn, add doxycycline 100 mg IV every 12 hours -Discontinue levofloxacin because of potential interaction with amiodarone -Follow-up blood cultures -IV norepinephrine Hypoxic and hypercapnic respiratory failure-likely secondary to pneumonia, may have a component of fluid overload, although IV fluids were discontinued yesterday morning. -Non-Invasive positive pressure ventilation -Follow-up ABGs in a.m. Atrial fibrillation with rapid ventricular response-recurrent A. fib today with rapid rate, modestly improved with digoxin -Amiodarone 150 mg IV now followed by continuous infusion of amiodarone over 24 hours per protocol -Hold metoprolol 50 mg daily, because of hypotension Coronary artery disease - history of previous myocardial infarction and stenting about 9 years ago. No active anginal symptoms at this time. Troponin found to be elevated, likely demand ischemia in the setting of hypotension and hypoxia -Continue medical management -Follow-up troponin level tonight and again in a.m. Chronic kidney disease stage III-mild acute injury likely related to hypotension , urine output has been adequate -Continue to closely monitor renal function and urine output Maintenance issues - - DVT prophylaxis - Lovenox held because of thrombocytopenia, SCUDs - GI prophylaxis - not indicated - Nutrition - heart healthy - Mullen catheter - to closely monitor urine output CODE STATUS - DNR/DNI Admission justification - This patient will be admitted for inpatient services and is medically appropriate meeting medical necessity for inpatient admission as outlined in my documentation. I reasonably expect the patient will require inpatient services that span a period time over 2 midnights. I reasonably expect this patient to be discharged or transferred within 96 hours [facility] Disposition - anticipate discharge home after the hospital stay Primary care physician - [facility]
[2018-03-18] MEDS: Doxycycline 100 MG in Sodium Chloride 0.9% 100 ML IV SCH (12:13)
[2018-03-19] MEDS: Doxycycline 100 MG in Sodium Chloride 0.9% 100 ML IV SCH ×2 (00:21→11:36)
[2018-03-19] MEDS: Norepinephrine 4 MG in Dextrose 5% in Water 246 ML IV SCH ×2 (04:37)
[2018-03-19] MEDS: Piperacillin/Tazobactam/Dext 3.375 GM in Premix Bag 1 BAG IV SCH ×4 (05:23→23:45)
[2018-03-19] MEDS ORDERED: Furosemide 40 MG/4 ML VIAL IVPUSH ONE (08:30)
[2018-03-19] MEDS ORDERED: Potassium Chloride 20 MEQ Tab.ER PO ONE ×2 (08:30→23:23)
[2018-03-19] MEDS: Polyethylene Glycol 3350 Powder 17 GM Packet PO SCH (08:44)
--- NOTE | 2018-03-19 08:54 | CR ---
CHEST: Portable CLINICAL HISTORY:Bilateral infiltrates COMPARISON:03/19/2018 FINDINGS: Vascularity remains mildly prominent. There has been some decrease since prior study. Ther e is patchy airspace disease in both lower lobes. There is some improved aeration in the left lower l obe. The right upper extremity PICC line tip is in the lower portion of the right atrium. IMPRESSION: Slight improvement in bilateral infiltrates since prior study PICC line position noted above
--- NOTE | 2018-03-19 10:17 | PCM.PN ---
- General Info Date of Service: 03/19/18 Subjective Update: Ms. Lobato has shown further improvement over the past 24 hours, she is sitting in a chair this morning off of BPAP, receiving supplemental oxygen. Continues to require IV norepinephrine to maintain blood pressure but doses significantly decreased over the past 48 hours. She is completing amiodarone infusion, remains in atrial fibrillation with rapid ventricular response. Denies significant shortness of breath or other discomfort. Functional Status: Reports: Pain Controlled, Tolerating Diet - Review of Systems General: Reports: Weakness. Denies: Fever, Chills Pulmonary: Reports: Shortness of Breath. Denies: Pleuritic Chest Pain, Cough, Sputum, Hemoptysis, Wheezing Cardiovascular: Reports: Dyspnea on Exertion. Denies: Chest Pain, Palpitations , Orthopnea, PND, Edema Gastrointestinal: Reports: No Symptoms - Patient Data Vitals - Most Recent: Last Vital Signs Temp 97.2 F 03/19/18 03:00 Pulse 126 H 03/19/18 06:00 Resp 14 03/19/18 06:00 BP 124/54 L 03/19/18 08:35 Pulse Ox 84 L 03/19/18 06:00 Weight - Most Recent: 121 lb 15.99 oz I&O - Last 24 Hours: Intake & Output 03/18/18 03/19/18 03/19/18 22:59 06:59 14:59 Intake Total 1885 942 Output Total 735 590 Balance 1150 352 Lab Results Last 24 Hours: Laboratory Results - last 24 hr 03/18/18 03/19/18 03/19/18 Range/Units 17:00 04:50 04:50 WBC 7.6 (4.5-11.0) K/uL RBC 4.77 (3.30-5.50) M/uL Hgb 14.1 (12.0-15.0) g/dL Hct 41.5 (36.0-48.0) % MCV 87 (80-98) fL MCH 30 (27-31) pg MCHC 34 (32-36) % Plt Count 61 L (150-400) K/uL Neut % (Auto) 79 H (36-66) % Lymph % (Auto) 8 L (24-44) % [place] % (Auto) 10 H (2-6) % Eos % (Auto) 0 L (2-4) % Baso % (Auto) 3 H (0-1) % Sodium 136 L 135 L (140-148) mmol/L Potassium 4.0 3.3 L (3.6-5.2) mmol/L Chloride 102 101 (100-108) mmol/L Carbon Dioxide 23 25 (21-32) mmol/L Anion Gap 15.0 H 12.3 (5.0-14.0) mmol/L BUN 29 H 32 H (7-18) mg/dL Creatinine 1.4 H 1.3 H (0.6-1.0) mg/dL Est Cr Clr Drug Dosing 25.55 27.52 mL/min Estimated GFR (MDRD) 36 L 39 L (>60) Glucose 138 H 112 H (74-106) mg/dL Calcium 9.0 8.7 (8.5-10.1) mg/dL Magnesium 1.7 L (1.8-2.4) mg/dL Total Bilirubin 0.7 (0.2-1.0) mg/dL AST 76 H (15-37) U/L ALT 59 (12-78) U/L Alkaline Phosphatase 134 H (46-116) U/L Troponin I 0.176 H* (0.000-0.056) ng/mL Total Protein 5.4 L (6.4-8.2) g/dL Albumin 1.9 L (3.4-5.0) g/dL Globulin 3.5 (2.3-3.5) g/dL Albumin/Globulin Ratio 0.5 L (1.2-2.2) Digoxin 1.43 (0.90-2.00) ng/mL Ismael Results Last 24 Hours: Microbiology 03/15/18 08:45 Aerobic Blood Culture - Preliminary Blood - Arm, Right NO GROWTH AFTER 4 DAYS Anaerobic Blood Culture - Preliminary NO GROWTH AFTER 4 DAYS 03/15/18 08:45 Aerobic Blood Culture - Preliminary Blood - Arm, Right NO GROWTH AFTER 4 DAYS Anaerobic Blood Culture - Preliminary NO GROWTH AFTER 4 DAYS 03/17/18 10:14 Aerobic Blood Culture - Preliminary Blood - Arm, Right NO GROWTH AFTER 1 DAY Anaerobic Blood Culture - Preliminary NO GROWTH AFTER 1 DAY 03/17/18 10:19 Aerobic Blood Culture - Preliminary Blood - Arterial Line - Direct Stick NO GROWTH AFTER 1 DAY Anaerobic Blood Culture - Preliminary NO GROWTH AFTER 1 DAY Med Orders - Current: Current Medications Acetaminophen (Tylenol) 650 mg PO Q4H PRN PRN Reason: Pain (Mild 1-3)/fever Last Admin: 03/17/18 22:48 Dose: 650 mg Albuterol (Proventil Neb Soln) 2.5 mg NEB Q4H PRN PRN Reason: Shortness Of Breath/wheezing Last Admin: 03/15/18 22:41 Dose: 2.5 mg Digoxin (Lanoxin) 125 mcg IVPUSH ONETIME ONE Stop: 03/19/18 10:09 Guaifenesin/Dextromethorphan (Robitussin Dm) 10 ml PO Q6H PRN PRN Reason: Cough Piperacillin/Tazobactam/ (Dextrose 3.375 gm/ Premix) 50 mls @ 100 mls/hr IV Q6H JESSICA Last Admin: 03/19/18 05:23 Dose: 100 mls/hr Norepinephrine Bitartrate 4 mg (/ Dextrose/Water) 250 mls @ 7.5 mls/hr IV TITRATE JESSICA; Protocol Last Admin: 03/19/18 04:37 Dose: 3 mcg/min, 11.25 mls/hr Amiodarone HCl 450 mg/ (Dextrose/Water) 250 mls @ 33.33 mls/hr IV ASDIRECTED JESSICA; Protocol Last Admin: 03/18/18 21:32 Dose: 0.5 mg/min, 16.66 mls/hr Doxycycline Hyclate 100 mg/ (Sodium Chloride) 100 mls @ 100 mls/hr IV Q12H JESSICA Last Admin: 03/19/18 00:21 Dose: 100 mls/hr Ondansetron HCl (Zofran Odt) 4 mg PO Q6H PRN PRN Reason: Nausea able to take PO Ondansetron HCl (Zofran) 4 mg IV Q6H PRN PRN Reason: Nausea/Vomiting Polyethylene Glycol (Miralax) 17 gm PO DAILY JESSICA Last Admin: 03/19/18 08:44 Dose: Not Given Tramadol HCl (Ultram) 50 mg PO Q6H PRN PRN Reason: Pain Last Admin: 03/18/18 00:05 Dose: 50 mg Discontinued Medications Amiodarone HCl (Cordarone) 150 mg IVPUSH ONETIME ONE; Protocol Stop: 03/18/18 12:01 Last Admin: 03/18/18 12:59 Dose: 150 mg Azithromycin (Zithromax) 500 mg PO ONETIME ONE Stop: 03/15/18 11:01 Last Admin: 03/15/18 10:51 Dose: 500 mg Azithromycin (Zithromax) 500 mg PO DAILY ON LICENSE OF [facility] Last Admin: 03/17/18 08:49 Dose: 500 mg Digoxin (Lanoxin) 250 mcg IVPUSH ONETIME STA Stop: 03/18/18 06:18 Last Admin: 03/18/18 06:26 Dose: 250 mcg Digoxin (Lanoxin) 250 mcg IVPUSH ONETIME ONE Stop: 03/18/18 07:31 Last Admin: 03/18/18 07:30 Dose: 250 mcg Diltiazem HCl (Cardizem) 30 mg PO Q6H ON LICENSE OF [facility] Last Admin: 03/17/18 19:21 Dose: 30 mg Enoxaparin Sodium (Lovenox) 40 mg SUBCUT DAILY ON LICENSE OF [facility] Last Admin: 03/18/18 08:23 Dose: Not Given Furosemide (Lasix) 20 mg IVPUSH NOW ONE Stop: 03/17/18 12:36 Last Admin: 03/17/18 16:27 Dose: Not Given Furosemide (Lasix) 40 mg IVPUSH NOW ONE Stop: 03/17/18 12:51 Last Admin: 03/17/18 15:35 Dose: 40 mg Furosemide (Lasix) 40 mg IVPUSH NOW ONE Stop: 03/18/18 08:10 Last Admin: 03/18/18 09:21 Dose: 40 mg Furosemide (Lasix) 40 mg IVPUSH NOW ONE Stop: 03/19/18 08:31 Last Admin: 03/19/18 08:35 Dose: 40 mg Sodium Chloride (Normal Saline) 1,000 mls @ 500 mls/hr IV ASDIRECTED ON LICENSE OF [facility] Last Admin: 03/15/18 09:18 Dose: 500 mls/hr Ceftriaxone Sodium 1 gm/ (Sodium Chloride) 50 mls @ 100 mls/hr IV ONETIME ONE Stop: 03/15/18 09:57 Last Admin: 03/15/18 10:24 Dose: 100 mls/hr Ceftriaxone Sodium 1 gm/ (Sodium Chloride) 50 mls @ 100 mls/hr IV Q24H ON LICENSE OF [facility] Last Admin: 03/16/18 11:12 Dose: 100 mls/hr Sodium Chloride (Normal Saline) 1,000 mls @ 50 mls/hr IV ASDIRECTED ON LICENSE OF [facility] Last Admin: 03/17/18 17:03 Dose: 50 mls/hr Levofloxacin/Dextrose 750 mg/ (Premix) 150 mls @ 100 mls/hr IV Q48H ON LICENSE OF [facility] Last Admin: 03/17/18 10:42 Dose: 100 mls/hr Sodium Chloride (Normal Saline) 500 mls @ 500 mls/hr IV ONETIME ONE Stop: 03/17/18 14:44 Last Admin: 03/17/18 14:00 Dose: 500 mls/hr Potassium Chloride 20 meq/Lidocaine HCl 2 ml/ Sodium Chloride 112 mls @ 56 mls/ hr IV Q2H ON LICENSE OF [facility] Stop: 03/18/18 13:59 Last Admin: 03/18/18 12:14 Dose: 56 mls/hr Ibuprofen (Motrin) 400 mg PO ONETIME ONE Stop: 03/17/18 09:01 Last Admin: 03/17/18 08:51 Dose: Not Given Metoprolol Tartrate (Lopressor) 50 mg PO DAILY ON LICENSE OF [facility] Last Admin: 03/17/18 08:50 Dose: 50 mg Metoprolol Tartrate (Lopressor) 5 mg IVPUSH ONETIME ONE Stop: 03/15/18 23:45 Last Admin: 03/15/18 23:53 Dose: 5 mg Potassium Chloride (Klor-Con M20) 40 meq PO ONETIME ONE Stop: 03/19/18 08:31 Last Admin: 03/19/18 08:36 Dose: 40 meq - Exam Quality Assessment: Supplemental Oxygen, Central Line/PICC, Urine Catheter, DVT Prophylaxis General: Alert, Oriented, Cooperative, No Acute Distress Lungs: Normal Respiratory Effort, Rales. No: Rhonchi, Wheezing Cardiovascular: Regular Rate, Regular Rhythm, No Murmurs GI/Abdominal Exam: Soft, Non-Tender, No Organomegaly, No Distention Extremities: Non-Tender, No Pedal Edema Skin: Warm, Dry, Intact - Problem List Review Problem List Initiated/Reviewed/Updated: Yes - My Orders Last 24 Hours: My Active Orders 03/18/18 09:38 Consult to PICC Team [CONS] Routine Central Venous Line Insertion [OM.PC] Routine 03/18/18 12:00 Amiodarone [Cordarone] 450 mg Dextrose 5% in Water 241 ml IV ASDIRECTED Doxycycline [Vibramycin] 100 mg Sodium Chloride 0.9% [Normal Saline] 100 ml IV Q12H 03/18/18 15:45 Mullen Catheter Insertion [Insert Urinary Catheter] [OM.PC] Q24H 03/19/18 10:08 Echo Comp wo Cont [US] Stat Digoxin [Lanoxin] 125 mcg IVPUSH ONETIME ONE 03/20/18 05:00 BASIC METABOLIC PANEL,BMP [CHEM] Timed CBC WITH AUTO DIFF [HEME] Timed DIGOXIN [CHEM] Timed MAGNESIUM [CHEM] Timed - Plan Plan:: ASSESSMENT AND PLAN - Bilateral pneumonia- community acquired pneumonia with possible contribution from hypoventilation with recent chest wall trauma. She has been afebrile over the past 48 hours, continues to require norepinephrine to support blood pressure but at a lower dose, probable underlying sepsis secondary to pneumonia. -Continue Zosyn, add doxycycline 100 mg IV every 12 hours -Follow-up blood cultures -IV norepinephrine Hypoxic and hypercapnic respiratory failure-likely secondary to pneumonia, may have a component of fluid overload, although IV fluids were discontinued yesterday morning. -Non-Invasive positive pressure ventilation -Continue daily IV furosemide -Follow-up ABGs in a.m. Atrial fibrillation with rapid ventricular response- persistent atrial fibrillation with rapid ventricular response, rate control improved with amiodarone -Complete amiodarone infusion today -Amiodarone 400 mg by mouth daily -Digoxin 0.125 mg IV now -Repeat digoxin level in a.m. -Restart diltiazem after blood pressure has stabilized Coronary artery disease - history of previous myocardial infarction and stenting about 9 years ago. No active anginal symptoms at this time. Troponin found to be elevated, likely demand ischemia in the setting of hypotension and hypoxia. Troponin level remains mildly elevated but improved over the past 48 hours -Continue medical management Chronic kidney disease stage III-renal function improved over the past 24 hours -Continue to closely monitor renal function and urine output Maintenance issues - - DVT prophylaxis - Lovenox held because of thrombocytopenia, SCUDs - GI prophylaxis - not indicated - Nutrition - heart healthy - Mullen catheter - to closely monitor urine output CODE STATUS - DNR/DNI Admission justification - This patient will be admitted for inpatient services and is medically appropriate meeting medical necessity for inpatient admission as outlined in my documentation. I reasonably expect the patient will require inpatient services that span a period time over 2 midnights. I reasonably expect this patient to be discharged or transferred within 96 hours after admission to the [facility]. Disposition - anticipate discharge home after the hospital stay Primary care physician - [facility] internal medicine group
[2018-03-19] MEDS ORDERED: Digoxin 500 MCG/2 ML Amp IVPUSH ONE (10:30)
[2018-03-19] MEDS: Amiodarone 200 MG Tab PO SCH (15:33)
[2018-03-19] MEDS ORDERED: Magnesium Sulfate/Water 2 GM in Premix Bag 1 BAG IV ONE (23:23)
[2018-03-20] MEDS: Doxycycline 100 MG in Sodium Chloride 0.9% 100 ML IV SCH ×2 (00:35→12:55)
[2018-03-20] MEDS: Piperacillin/Tazobactam/Dext 3.375 GM in Premix Bag 1 BAG IV SCH ×3 (05:55→17:49)
[2018-03-20] MEDS ORDERED: Magnesium Sulfate/Water 2 GM in Premix Bag 1 BAG IV ONE (09:00)
[2018-03-20] MEDS: Amiodarone 200 MG Tab PO SCH (09:55)
[2018-03-20] MEDS: Polyethylene Glycol 3350 Powder 17 GM Packet PO SCH ×2 (10:04→10:20)
[2018-03-20] MEDS ORDERED: Furosemide 40 MG/4 ML VIAL IVPUSH ONE (10:20)
--- NOTE | 2018-03-20 10:27 | PCM.PN ---
- General Info Date of Service: 03/20/18 Subjective Update: Ms. Lobato has been stable since yesterday, she is now off of IV norepinephrine with adequate blood pressures. Heart rate has come down following amiodarone infusion although she remains in atrial fibrillation. Continues to require supplemental oxygen and regular use of BiPAP to maintain adequate oxygenation. Denies symptoms of chest pain or pressure or significant shortness of breath. Vital signs have been stable and she has remained afebrile. - Review of Systems General: Reports: Weakness. Denies: Fever, Chills Pulmonary: Reports: Shortness of Breath. Denies: Pleuritic Chest Pain, Cough, Sputum, Hemoptysis, Wheezing Cardiovascular: Reports: Dyspnea on Exertion, Edema. Denies: Chest Pain, Palpitations, Orthopnea, PND Gastrointestinal: Reports: No Symptoms - Patient Data Vitals - Most Recent: Last Vital Signs Temp 98.2 F 03/20/18 08:00 Pulse 88 03/20/18 08:00 Resp 22 H 03/20/18 08:00 BP 118/64 03/20/18 08:00 Pulse Ox 96 03/20/18 08:00 Weight - Most Recent: 121 lb 15.99 oz I&O - Last 24 Hours: Intake & Output 03/19/18 03/20/18 03/20/18 22:59 06:59 14:59 Intake Total 526 370 Output Total 700 650 Balance -174 -280 Lab Results Last 24 Hours: Laboratory Results - last 24 hr 03/19/18 03/20/18 03/20/18 Range/Units 22:42 05:25 05:25 WBC 7.7 (4.5-11.0) K/uL RBC 4.43 (3.30-5.50) M/uL Hgb 12.7 (12.0-15.0) g/dL Hct 38.5 (36.0-48.0) % MCV 87 (80-98) fL MCH 29 (27-31) pg MCHC 33 (32-36) % Plt Count 57 L (150-400) K/uL Add Manual Diff Yes Neutrophils % (Manual) 67 H (36-66) % Band Neutrophils % 2 L (5-11) % Lymphocytes % (Manual) 17 L (24-44) % Monocytes % (Manual) 9 H (2-6) % Eosinophils % (Manual) 3 (2-4) % Blast Cells % 2 % Sodium 137 L (140-148) mmol/L Potassium 3.6 4.0 (3.6-5.2) mmol/L Chloride 103 (100-108) mmol/L Carbon Dioxide 28 (21-32) mmol/L Anion Gap 10.0 (5.0-14.0) mmol/L BUN 25 H (7-18) mg/dL Creatinine 1.2 H (0.6-1.0) mg/dL Est Cr Clr Drug Dosing 29.81 mL/min Estimated GFR (MDRD) 43 L (>60) Glucose 98 (74-106) mg/dL Calcium 8.5 (8.5-10.1) mg/dL Magnesium 1.6 L 2.1 (1.8-2.4) mg/dL Digoxin 2.01 H (0.90-2.00) ng/mL Ismael Results Last 24 Hours: Microbiology 03/15/18 08:45 Aerobic Blood Culture - Final Blood - Arm, Right NO GROWTH AFTER 5 DAYS Anaerobic Blood Culture - Final NO GROWTH AFTER 5 DAYS 03/15/18 08:45 Aerobic Blood Culture - Final Blood - Arm, Right NO GROWTH AFTER 5 DAYS Anaerobic Blood Culture - Final NO GROWTH AFTER 5 DAYS 03/17/18 10:14 Aerobic Blood Culture - Preliminary Blood - Arm, Right NO GROWTH AFTER 2 DAYS Anaerobic Blood Culture - Preliminary NO GROWTH AFTER 2 DAYS 03/17/18 10:19 Aerobic Blood Culture - Preliminary Blood - Arterial Line - Direct Stick NO GROWTH AFTER 2 DAYS Anaerobic Blood Culture - Preliminary NO GROWTH AFTER 2 DAYS Med Orders - Current: Current Medications Acetaminophen (Tylenol) 650 mg PO Q4H PRN PRN Reason: Pain (Mild 1-3)/fever Last Admin: 03/17/18 22:48 Dose: 650 mg Albuterol (Proventil Neb Soln) 2.5 mg NEB Q4H PRN PRN Reason: Shortness Of Breath/wheezing Last Admin: 03/15/18 22:41 Dose: 2.5 mg Amiodarone HCl (Cordarone) 400 mg PO DAILY JESSICA Last Admin: 03/20/18 09:55 Dose: 400 mg Furosemide (Lasix) 40 mg IVPUSH NOW ONE Stop: 03/20/18 10:21 Guaifenesin/Dextromethorphan (Robitussin Dm) 10 ml PO Q6H PRN PRN Reason: Cough Piperacillin/Tazobactam/ (Dextrose 3.375 gm/ Premix) 50 mls @ 100 mls/hr IV Q6H [facility] Last Admin: 03/20/18 05:55 Dose: 100 mls/hr Norepinephrine Bitartrate 4 mg (/ Dextrose/Water) 250 mls @ 7.5 mls/hr IV TITRATE [facility]; Protocol Last Titration: 03/20/18 05:58 Dose: 0 mcg/min, 0 mls/hr Doxycycline Hyclate 100 mg/ (Sodium Chloride) 100 mls @ 100 mls/hr IV Q12H [facility] Last Admin: 03/20/18 00:35 Dose: 100 mls/hr Magnesium Sulfate 2 gm/ Premix 50 mls @ 25 mls/hr IV ONETIME ONE Stop: 03/20/18 10:59 Last Admin: 03/20/18 09:58 Dose: 25 mls/hr Ondansetron HCl (Zofran Odt) 4 mg PO Q6H PRN PRN Reason: Nausea able to take PO Ondansetron HCl (Zofran) 4 mg IV Q6H PRN PRN Reason: Nausea/Vomiting Polyethylene Glycol (Miralax) 17 gm PO DAILY [facility] Last Admin: 03/20/18 10:20 Dose: Not Given Tramadol HCl (Ultram) 50 mg PO Q6H PRN PRN Reason: Pain Last Admin: 03/18/18 00:05 Dose: 50 mg Discontinued Medications Amiodarone HCl (Cordarone) 150 mg IVPUSH ONETIME ONE; Protocol Stop: 03/18/18 12:01 Last Admin: 03/18/18 12:59 Dose: 150 mg Azithromycin (Zithromax) 500 mg PO ONETIME ONE Stop: 03/15/18 11:01 Last Admin: 03/15/18 10:51 Dose: 500 mg Azithromycin (Zithromax) 500 mg PO DAILY [facility] Last Admin: 03/17/18 08:49 Dose: 500 mg Digoxin (Lanoxin) 250 mcg IVPUSH ONETIME STA Stop: 03/18/18 06:18 Last Admin: 03/18/18 06:26 Dose: 250 mcg Digoxin (Lanoxin) 250 mcg IVPUSH ONETIME ONE Stop: 03/18/18 07:31 Last Admin: 03/18/18 07:30 Dose: 250 mcg Digoxin (Lanoxin) 125 mcg IVPUSH ONETIME ONE Stop: 03/19/18 10:31 Last Admin: 03/19/18 11:20 Dose: 125 mcg Diltiazem HCl (Cardizem) 30 mg PO Q6H [facility] Last Admin: 03/17/18 19:21 Dose: 30 mg Enoxaparin Sodium (Lovenox) 40 mg SUBCUT DAILY [facility] Last Admin: 03/18/18 08:23 Dose: Not Given Furosemide (Lasix) 20 mg IVPUSH NOW ONE Stop: 03/17/18 12:36 Last Admin: 03/17/18 16:27 Dose: Not Given Furosemide (Lasix) 40 mg IVPUSH NOW ONE Stop: 03/17/18 12:51 Last Admin: 03/17/18 15:35 Dose: 40 mg Furosemide (Lasix) 40 mg IVPUSH NOW ONE Stop: 03/18/18 08:10 Last Admin: 03/18/18 09:21 Dose: 40 mg Furosemide (Lasix) 40 mg IVPUSH NOW ONE Stop: 03/19/18 08:31 Last Admin: 03/19/18 08:35 Dose: 40 mg Sodium Chloride (Normal Saline) 1,000 mls @ 500 mls/hr IV ASDIRECTED [facility] Last Admin: 03/15/18 09:18 Dose: 500 mls/hr Ceftriaxone Sodium 1 gm/ (Sodium Chloride) 50 mls @ 100 mls/hr IV ONETIME ONE Stop: 03/15/18 09:57 Last Admin: 03/15/18 10:24 Dose: 100 mls/hr Ceftriaxone Sodium 1 gm/ (Sodium Chloride) 50 mls @ 100 mls/hr IV Q24H [facility] Last Admin: 03/16/18 11:12 Dose: 100 mls/hr Sodium Chloride (Normal Saline) 1,000 mls @ 50 mls/hr IV ASDIRECTED [facility] Last Admin: 03/17/18 17:03 Dose: 50 mls/hr Levofloxacin/Dextrose 750 mg/ (Premix) 150 mls @ 100 mls/hr IV Q48H [facility] Last Admin: 03/17/18 10:42 Dose: 100 mls/hr Sodium Chloride (Normal Saline) 500 mls @ 500 mls/hr IV ONETIME ONE Stop: 03/17/18 14:44 Last Admin: 03/17/18 14:00 Dose: 500 mls/hr Potassium Chloride 20 meq/Lidocaine HCl 2 ml/ Sodium Chloride 112 mls @ 56 mls/ hr IV Q2H [facility] Stop: 03/18/18 13:59 Last Admin: 03/18/18 12:14 Dose: 56 mls/hr Amiodarone HCl 450 mg/ (Dextrose/Water) 250 mls @ 33.33 mls/hr IV ASDIRECTED [facility]; Protocol Stop: 03/19/18 14:30 Last Admin: 03/18/18 21:32 Dose: 0.5 mg/min, 16.66 mls/hr Magnesium Sulfate 2 gm/ Premix 50 mls @ 12.5 mls/hr IV ONETIME ONE Stop: 03/20/18 03:22 Last Admin: 03/19/18 23:45 Dose: 12.5 mls/hr Ibuprofen (Motrin) 400 mg PO ONETIME ONE Stop: 03/17/18 09:01 Last Admin: 03/17/18 08:51 Dose: Not Given Metoprolol Tartrate (Lopressor) 50 mg PO DAILY [facility] Last Admin: 03/17/18 08:50 Dose: 50 mg Metoprolol Tartrate (Lopressor) 5 mg IVPUSH ONETIME ONE Stop: 03/15/18 23:45 Last Admin: 03/15/18 23:53 Dose: 5 mg Potassium Chloride (Klor-Con M20) 40 meq PO ONETIME ONE Stop: 03/19/18 08:31 Last Admin: 03/19/18 08:36 Dose: 40 meq Potassium Chloride (Klor-Con M20) 40 meq PO ONETIME ONE Stop: 03/19/18 23:24 Last Admin: 03/19/18 23:44 Dose: 40 meq - Exam Quality Assessment: Supplemental Oxygen (noninvasive positive pressure ventilation), DVT Prophylaxis General: Alert, Oriented Lungs: Normal Respiratory Effort, Rales. No: Rhonchi, Wheezing Cardiovascular: Regular Rate, Irregular Rhythm, Murmurs GI/Abdominal Exam: Soft, Non-Tender, No Organomegaly, No Distention Extremities: Non-Tender, No Pedal Edema Skin: Warm, Dry - Problem List Review Problem List Initiated/Reviewed/Updated: Yes - My Orders Last 24 Hours: My Active Orders 03/19/18 10:08 Echo Comp wo Cont [US] Stat 03/19/18 15:00 Amiodarone [Cordarone] 400 mg PO DAILY 03/20/18 09:00 Magnesium Sulfate/Water [Magnesium Sulfate 2 GM in Water 50 ML] 2 gm Premix Bag 1 bag IV ONETIME 03/20/18 10:20 Furosemide [Lasix] 40 mg IVPUSH NOW ONE 03/21/18 05:00 Chest 1V Frontal [CR] Timed BASIC METABOLIC PANEL,BMP [CHEM] Timed CBC WITH AUTO DIFF [HEME] Timed MAGNESIUM [CHEM] Timed - Plan Plan:: ASSESSMENT AND PLAN - Bilateral pneumonia- community acquired pneumonia with possible contribution from hypoventilation with recent chest wall trauma. She has been afebrile over the past 72 hours, now off of IV norepinephrine with stable blood pressures. blood cultures have remained negative thus far. -Continue Zosyn and doxycycline 100 mg IV every 12 hours -Follow-up blood cultures Hypoxic and hypercapnic respiratory failure-likely secondary to pneumonia, there also appears to be a component ofpulmonary edema. Echocardiogram showed normal left ventricular systolic function, concentric left ventricular hypertrophy, severe mitral stenosis and mitral regurgitation. -Non-Invasive positive pressure ventilation -Continue daily IV furosemide Atrial fibrillation with rapid ventricular response- persistent atrial fibrillation with rapid ventricular response, rates are now well controlled after amiodarone infusion. Digoxin level this morning borderline elevated -Complete amiodarone infusion today -Amiodarone 400 mg by mouth daily -hold digoxin today -Repeat digoxin level in a.m. Coronary artery disease - history of previous myocardial infarction and stenting about 9 years ago. No active anginal symptoms at this time. Troponin found to be elevated, likely demand ischemia in the setting of hypotension and hypoxia. Troponin level remains mildly elevated but improved over the past 48 hours -Continue medical management Chronic kidney disease stage III-renal function improved over the past 24 hoursand he is now close to baseline -Continue to closely monitor renal function and urine output Maintenance issues - - DVT prophylaxis - Lovenox held because of thrombocytopenia, SCUDs - GI prophylaxis - not indicated - Nutrition - heart healthy - Mullen catheter - to closely monitor urine output CODE STATUS - DNR/DNI Admission justification - This patient will be admitted for inpatient services and is medically appropriate meeting medical necessity for inpatient admission as outlined in my documentation. I reasonably expect the patient will require inpatient services that span a period time over 2 midnights. I reasonably expect this patient to be discharged or transferred within 96 hours after admission to the [facility]. Disposition - anticipate discharge home after the hospital stay Primary care physician - [facility] internal medicine group
[2018-03-21] MEDS: Piperacillin/Tazobactam/Dext 3.375 GM in Premix Bag 1 BAG IV SCH ×4 (00:01→17:40)
[2018-03-21] MEDS: Doxycycline 100 MG in Sodium Chloride 0.9% 100 ML IV SCH ×2 (00:49→12:40)
[2018-03-21] MEDS: Amiodarone 200 MG Tab PO SCH (08:57)
[2018-03-21] MEDS ORDERED: Potassium Chloride 20 MEQ Tab.ER PO ONE ×2 (09:00→16:00)
[2018-03-21] MEDS ORDERED: Furosemide 40 MG/4 ML VIAL IVPUSH ONE (09:00)
[2018-03-21] MEDS: Polyethylene Glycol 3350 Powder 17 GM Packet PO SCH (09:04)
--- NOTE | 2018-03-21 09:27 | PCM.PN ---
- General Info Date of Service: 03/21/18 Subjective Update: Ms. Lobato has been stable over the past 24 hours with further modest improvement in respiratory status, she is done well during the day with supplemental oxygen and off of noninvasive positive pressure ventilation. Heart rate has remained under good control and blood pressure has been within desired range off of the norepinephrine. Vital signs otherwise have been stable and she has remained afebrile. Functional Status: Reports: Tolerating Diet - Review of Systems General: Reports: Weakness. Denies: Fever, Chills Pulmonary: Reports: Shortness of Breath. Denies: Pleuritic Chest Pain, Cough, Sputum, Hemoptysis, Wheezing Cardiovascular: Reports: Dyspnea on Exertion. Denies: Chest Pain, Palpitations , Orthopnea, PND, Edema Gastrointestinal: Reports: No Symptoms - Patient Data Vitals - Most Recent: Last Vital Signs Temp 95.5 F 03/20/18 20:00 Pulse 74 03/21/18 06:00 Resp 16 03/21/18 04:00 BP 112/53 L 03/21/18 08:58 Pulse Ox 100 03/21/18 06:00 Weight - Most Recent: 121 lb 15.99 oz I&O - Last 24 Hours: Intake & Output 03/20/18 03/21/18 03/21/18 22:59 06:59 14:59 Intake Total 120 440 Output Total 700 450 Balance -580 -10 Lab Results Last 24 Hours: Laboratory Results - last 24 hr 03/21/18 03/21/18 Range/Units 05:18 05:18 WBC 8.8 (4.5-11.0) K/uL RBC 4.10 (3.30-5.50) M/uL Hgb 12.0 (12.0-15.0) g/dL Hct 35.8 L (36.0-48.0) % MCV 87 (80-98) fL MCH 29 (27-31) pg MCHC 34 (32-36) % Plt Count 61 L (150-400) K/uL Neut % (Auto) 68 H (36-66) % Lymph % (Auto) 22 L (24-44) % [place] % (Auto) 9 H (2-6) % Eos % (Auto) 0 L (2-4) % Baso % (Auto) 1 (0-1) % Sodium 139 L (140-148) mmol/L Potassium 3.1 L (3.6-5.2) mmol/L Chloride 104 (100-108) mmol/L Carbon Dioxide 27 (21-32) mmol/L Anion Gap 11.1 (5.0-14.0) mmol/L BUN 25 H (7-18) mg/dL Creatinine 1.1 H (0.6-1.0) mg/dL Est Cr Clr Drug Dosing 32.52 mL/min Estimated GFR (MDRD) 47 L (>60) Glucose 91 (74-106) mg/dL Calcium 8.2 L (8.5-10.1) mg/dL Magnesium 2.0 (1.8-2.4) mg/dL Digoxin 1.24 (0.90-2.00) ng/mL Ismael Results Last 24 Hours: Microbiology 03/17/18 10:14 Aerobic Blood Culture - Preliminary Blood - Arm, Right NO GROWTH AFTER 3 DAYS Anaerobic Blood Culture - Preliminary NO GROWTH AFTER 3 DAYS 03/17/18 10:19 Aerobic Blood Culture - Preliminary Blood - Arterial Line - Direct Stick NO GROWTH AFTER 3 DAYS Anaerobic Blood Culture - Preliminary NO GROWTH AFTER 3 DAYS 03/15/18 08:45 Aerobic Blood Culture - Final Blood - Arm, Right NO GROWTH AFTER 5 DAYS Anaerobic Blood Culture - Final NO GROWTH AFTER 5 DAYS 03/15/18 08:45 Aerobic Blood Culture - Final Blood - Arm, Right NO GROWTH AFTER 5 DAYS Anaerobic Blood Culture - Final NO GROWTH AFTER 5 DAYS Med Orders - Current: Current Medications Acetaminophen (Tylenol) 650 mg PO Q4H PRN PRN Reason: Pain (Mild 1-3)/fever Last Admin: 03/17/18 22:48 Dose: 650 mg Albuterol (Proventil Neb Soln) 2.5 mg NEB Q4H PRN PRN Reason: Shortness Of Breath/wheezing Last Admin: 03/15/18 22:41 Dose: 2.5 mg Amiodarone HCl (Cordarone) 400 mg PO DAILY [facility] Last Admin: 03/21/18 08:57 Dose: 400 mg Guaifenesin/Dextromethorphan (Robitussin Dm) 10 ml PO Q6H PRN PRN Reason: Cough Piperacillin/Tazobactam/ (Dextrose 3.375 gm/ Premix) 50 mls @ 100 mls/hr IV Q6H [facility] Last Admin: 03/21/18 05:13 Dose: 100 mls/hr Norepinephrine Bitartrate 4 mg (/ Dextrose/Water) 250 mls @ 7.5 mls/hr IV TITRATE [facility]; Protocol Last Titration: 03/20/18 05:58 Dose: 0 mcg/min, 0 mls/hr Doxycycline Hyclate 100 mg/ (Sodium Chloride) 100 mls @ 100 mls/hr IV Q12H [facility] Last Admin: 03/21/18 00:49 Dose: 100 mls/hr Ondansetron HCl (Zofran Odt) 4 mg PO Q6H PRN PRN Reason: Nausea able to take PO Ondansetron HCl (Zofran) 4 mg IV Q6H PRN PRN Reason: Nausea/Vomiting Polyethylene Glycol (Miralax) 17 gm PO DAILY [facility] Last Admin: 03/21/18 09:04 Dose: Not Given Potassium Chloride (Klor-Con M20) 40 meq PO ONETIME ONE Stop: 03/21/18 16:01 Tramadol HCl (Ultram) 50 mg PO Q6H PRN PRN Reason: Pain Last Admin: 03/18/18 00:05 Dose: 50 mg Discontinued Medications Amiodarone HCl (Cordarone) 150 mg IVPUSH ONETIME ONE; Protocol Stop: 03/18/18 12:01 Last Admin: 03/18/18 12:59 Dose: 150 mg Azithromycin (Zithromax) 500 mg PO ONETIME ONE Stop: 03/15/18 11:01 Last Admin: 03/15/18 10:51 Dose: 500 mg Azithromycin (Zithromax) 500 mg PO DAILY [facility] Last Admin: 03/17/18 08:49 Dose: 500 mg Digoxin (Lanoxin) 250 mcg IVPUSH ONETIME STA Stop: 03/18/18 06:18 Last Admin: 03/18/18 06:26 Dose: 250 mcg Digoxin (Lanoxin) 250 mcg IVPUSH ONETIME ONE Stop: 03/18/18 07:31 Last Admin: 03/18/18 07:30 Dose: 250 mcg Digoxin (Lanoxin) 125 mcg IVPUSH ONETIME ONE Stop: 03/19/18 10:31 Last Admin: 03/19/18 11:20 Dose: 125 mcg Diltiazem HCl (Cardizem) 30 mg PO Q6H [facility] Last Admin: 03/17/18 19:21 Dose: 30 mg Enoxaparin Sodium (Lovenox) 40 mg SUBCUT DAILY [facility] Last Admin: 03/18/18 08:23 Dose: Not Given Furosemide (Lasix) 20 mg IVPUSH NOW ONE Stop: 03/17/18 12:36 Last Admin: 03/17/18 16:27 Dose: Not Given Furosemide (Lasix) 40 mg IVPUSH NOW ONE Stop: 03/17/18 12:51 Last Admin: 03/17/18 15:35 Dose: 40 mg Furosemide (Lasix) 40 mg IVPUSH NOW ONE Stop: 03/18/18 08:10 Last Admin: 03/18/18 09:21 Dose: 40 mg Furosemide (Lasix) 40 mg IVPUSH NOW ONE Stop: 03/19/18 08:31 Last Admin: 03/19/18 08:35 Dose: 40 mg Furosemide (Lasix) 40 mg IVPUSH NOW ONE Stop: 03/20/18 10:21 Last Admin: 03/20/18 10:30 Dose: 40 mg Furosemide (Lasix) 40 mg IVPUSH NOW ONE Stop: 03/21/18 09:01 Last Admin: 03/21/18 08:58 Dose: 40 mg Sodium Chloride (Normal Saline) 1,000 mls @ 500 mls/hr IV ASDIRECTED [facility] Last Admin: 03/15/18 09:18 Dose: 500 mls/hr Ceftriaxone Sodium 1 gm/ (Sodium Chloride) 50 mls @ 100 mls/hr IV ONETIME ONE Stop: 03/15/18 09:57 Last Admin: 03/15/18 10:24 Dose: 100 mls/hr Ceftriaxone Sodium 1 gm/ (Sodium Chloride) 50 mls @ 100 mls/hr IV Q24H [facility] Last Admin: 03/16/18 11:12 Dose: 100 mls/hr Sodium Chloride (Normal Saline) 1,000 mls @ 50 mls/hr IV ASDIRECTED [facility] Last Admin: 03/17/18 17:03 Dose: 50 mls/hr Levofloxacin/Dextrose 750 mg/ (Premix) 150 mls @ 100 mls/hr IV Q48H [facility] Last Admin: 03/17/18 10:42 Dose: 100 mls/hr Sodium Chloride (Normal Saline) 500 mls @ 500 mls/hr IV ONETIME ONE Stop: 03/17/18 14:44 Last Admin: 03/17/18 14:00 Dose: 500 mls/hr Potassium Chloride 20 meq/Lidocaine HCl 2 ml/ Sodium Chloride 112 mls @ 56 mls/ hr IV Q2H [facility] Stop: 03/18/18 13:59 Last Admin: 03/18/18 12:14 Dose: 56 mls/hr Amiodarone HCl 450 mg/ (Dextrose/Water) 250 mls @ 33.33 mls/hr IV ASDIRECTED [facility]; Protocol Stop: 03/19/18 14:30 Last Admin: 03/18/18 21:32 Dose: 0.5 mg/min, 16.66 mls/hr Magnesium Sulfate 2 gm/ Premix 50 mls @ 12.5 mls/hr IV ONETIME ONE Stop: 03/20/18 03:22 Last Admin: 03/19/18 23:45 Dose: 12.5 mls/hr Magnesium Sulfate 2 gm/ Premix 50 mls @ 25 mls/hr IV ONETIME ONE Stop: 03/20/18 10:59 Last Admin: 03/20/18 09:58 Dose: 25 mls/hr Ibuprofen (Motrin) 400 mg PO ONETIME ONE Stop: 03/17/18 09:01 Last Admin: 03/17/18 08:51 Dose: Not Given Metoprolol Tartrate (Lopressor) 50 mg PO DAILY [facility] Last Admin: 03/17/18 08:50 Dose: 50 mg Metoprolol Tartrate (Lopressor) 5 mg IVPUSH ONETIME ONE Stop: 03/15/18 23:45 Last Admin: 03/15/18 23:53 Dose: 5 mg Potassium Chloride (Klor-Con M20) 40 meq PO ONETIME ONE Stop: 03/19/18 08:31 Last Admin: 03/19/18 08:36 Dose: 40 meq Potassium Chloride (Klor-Con M20) 40 meq PO ONETIME ONE Stop: 03/19/18 23:24 Last Admin: 03/19/18 23:44 Dose: 40 meq Potassium Chloride (Klor-Con M20) 40 meq PO ONETIME ONE Stop: 03/21/18 09:01 Last Admin: 03/21/18 08:58 Dose: 40 meq - Exam Quality Assessment: Supplemental Oxygen, Central Line/PICC, Urine Catheter, DVT Prophylaxis General: Alert, Oriented, Cooperative, No Acute Distress Lungs: Normal Respiratory Effort, Decreased Breath Sounds, Rales. No: Rhonchi, Wheezing Cardiovascular: Regular Rate, No Murmurs, Irregular Rhythm GI/Abdominal Exam: Soft, Non-Tender, No Organomegaly, No Distention Back Exam: Normal Inspection, Full Range of Motion Extremities: Non-Tender, No Pedal Edema - Problem List Review Problem List Initiated/Reviewed/Updated: Yes - My Orders Last 24 Hours: My Active Orders 03/21/18 05:00 Chest 1V Frontal [CR] Timed 03/21/18 09:21 Remove Mullen Catheter [Urinary Catheter Removal] [RC] Per Unit Routine 03/21/18 16:00 Potassium Chloride [Klor-Con M20] 40 meq PO ONETIME ONE 03/22/18 05:00 BASIC METABOLIC PANEL,BMP [CHEM] Timed CBC WITH AUTO DIFF [HEME] Timed MAGNESIUM [CHEM] Timed - Plan Plan:: ASSESSMENT AND PLAN - Bilateral pneumonia- community acquired pneumonia with possible contribution from hypoventilation with recent chest wall trauma. She has been afebrile over the past 4 days, now off of IV norepinephrine with stable blood pressures. blood cultures have remained negative thus far. -Continue Zosyn and doxycycline -Follow-up blood cultures Hypoxic and hypercapnic respiratory failure-likely secondary to pneumonia, there also appears to be a component of pulmonary edema. Echocardiogram showed normal left ventricular systolic function, concentric left ventricular hypertrophy, severe mitral stenosis and mitral regurgitation. -Non-Invasive positive pressure ventilation as needed -Continue daily IV furosemide Severe mitral valve disease-likely contributing to current respiratory compromise Atrial fibrillation with rapid ventricular response- rate control remains good following amiodarone infusion and initiation of oral amiodarone -Amiodarone 400 mg by mouth daily -hold digoxin today Coronary artery disease - history of previous myocardial infarction and stenting about 9 years ago. No active anginal symptoms at this time. Troponin found to be elevated, likely demand ischemia in the setting of hypotension and hypoxia. Troponin level remains mildly elevated but improved over the past 48 hours -Continue medical management Chronic kidney disease stage III-renal function improved over the past 24 hoursand he is now close to baseline -Continue to closely monitor renal function and urine output Maintenance issues - - DVT prophylaxis - Lovenox held because of thrombocytopenia, SCUDs - GI prophylaxis - not indicated - Nutrition - heart healthy - Mullen catheter - to closely monitor urine output CODE STATUS - DNR/DNI Admission justification - This patient will be admitted for inpatient services and is medically appropriate meeting medical necessity for inpatient admission as outlined in my documentation. I reasonably expect the patient will require inpatient services that span a period time over 2 midnights. I reasonably expect this patient to be discharged or transferred within 96 hours after admission to the [facility]. Disposition - anticipate discharge home after the hospital stay Primary care physician - [facility] internal medicine group
[2018-03-22] MEDS: Piperacillin/Tazobactam/Dext 3.375 GM in Premix Bag 1 BAG IV SCH ×2 (00:29→06:11)
[2018-03-22] MEDS: Doxycycline 100 MG in Sodium Chloride 0.9% 100 ML IV SCH (00:56)
[2018-03-22] MEDS: Melatonin 3 MG Tab PO PRN ×2 (02:06→22:20)
[2018-03-22] MEDS: Amiodarone 200 MG Tab PO SCH (08:27)
[2018-03-22] MEDS ORDERED: Potassium Chloride 20 MEQ Tab.ER PO ONE (08:30)
[2018-03-22] MEDS: Magnesium Oxide 400 MG Tab PO SCH ×2 (08:32→22:19)
[2018-03-22] MEDS ORDERED: Furosemide 40 MG/4 ML VIAL IVPUSH ONE (09:00)
[2018-03-22] MEDS ORDERED: Magnesium Sulfate/Water 2 GM in Premix Bag 1 BAG IV ONE (09:00)
[2018-03-22] MEDS: Polyethylene Glycol 3350 Powder 17 GM Packet PO SCH (09:08)
--- NOTE | 2018-03-22 09:17 | PCM.PN ---
- General Info Date of Service: 03/22/18 Subjective Update: Ms. Lobato has shown further improvement over the past 24 hours with less shortness of breath, she has not used the noninvasive positive pressure ventilation over the past 24 hours. Saturations have been good, vital signs stable, and she has been afebrile. Slowly regaining strength and was able to walk a very short distance yesterday. - Review of Systems General: Reports: Weakness. Denies: Fever, Chills Pulmonary: Reports: Shortness of Breath. Denies: Pleuritic Chest Pain, Cough, Sputum, Hemoptysis, Wheezing Cardiovascular: Reports: Dyspnea on Exertion. Denies: Chest Pain, Palpitations , Orthopnea, PND, Edema Gastrointestinal: Reports: No Symptoms - Patient Data Vitals - Most Recent: Last Vital Signs Temp 97.7 F 03/22/18 06:00 Pulse 88 03/22/18 06:00 Resp 21 H 03/22/18 06:00 BP 138/50 L 03/22/18 08:31 Pulse Ox 100 03/22/18 06:00 Weight - Most Recent: 121 lb 15.99 oz I&O - Last 24 Hours: Intake & Output 03/21/18 03/22/18 03/22/18 22:59 06:59 14:59 Intake Total 240 440 Balance 240 440 Lab Results Last 24 Hours: Laboratory Results - last 24 hr 03/22/18 03/22/18 Range/Units 05:00 05:00 WBC 9.2 (4.5-11.0) K/uL RBC 4.35 (3.30-5.50) M/uL Hgb 13.2 (12.0-15.0) g/dL Hct 38.0 (36.0-48.0) % MCV 87 (80-98) fL MCH 30 (27-31) pg MCHC 35 (32-36) % Plt Count 101 L (150-400) K/uL Neut % (Auto) 63 (36-66) % Lymph % (Auto) 22 L (24-44) % [place] % (Auto) 14 H (2-6) % Eos % (Auto) 1 L (2-4) % Baso % (Auto) 0 (0-1) % Sodium 142 (140-148) mmol/L Potassium 3.5 L (3.6-5.2) mmol/L Chloride 103 (100-108) mmol/L Carbon Dioxide 30 (21-32) mmol/L Anion Gap 12.5 (5.0-14.0) mmol/L BUN 22 H (7-18) mg/dL Creatinine 1.1 H (0.6-1.0) mg/dL Est Cr Clr Drug Dosing 32.52 mL/min Estimated GFR (MDRD) 47 L (>60) Glucose 90 (74-106) mg/dL Calcium 8.4 L (8.5-10.1) mg/dL Magnesium 1.6 L (1.8-2.4) mg/dL Ismael Results Last 24 Hours: Microbiology 03/17/18 10:14 Aerobic Blood Culture - Preliminary Blood - Arm, Right NO GROWTH AFTER 4 DAYS Anaerobic Blood Culture - Preliminary NO GROWTH AFTER 4 DAYS 03/17/18 10:19 Aerobic Blood Culture - Preliminary Blood - Arterial Line - Direct Stick NO GROWTH AFTER 4 DAYS Anaerobic Blood Culture - Preliminary NO GROWTH AFTER 4 DAYS Med Orders - Current: Current Medications Acetaminophen (Tylenol) 650 mg PO Q4H PRN PRN Reason: Pain (Mild 1-3)/fever Last Admin: 03/17/18 22:48 Dose: 650 mg Albuterol (Proventil Neb Soln) 2.5 mg NEB Q4H PRN PRN Reason: Shortness Of Breath/wheezing Last Admin: 03/15/18 22:41 Dose: 2.5 mg Amiodarone HCl (Cordarone) 400 mg PO DAILY [facility] Last Admin: 03/22/18 08:27 Dose: 400 mg Amoxicillin/Clavulanate Potassium (Augmentin 875 Mg/125 Mg) 1 tab PO Q12HR [facility] Doxycycline Hyclate (Vibramycin) 100 mg PO BID [facility] Furosemide (Lasix) 40 mg PO DAILY [facility] Guaifenesin/Dextromethorphan (Robitussin Dm) 10 ml PO Q6H PRN PRN Reason: Cough Norepinephrine Bitartrate 4 mg (/ Dextrose/Water) 250 mls @ 7.5 mls/hr IV TITRATE [facility]; Protocol Last Titration: 03/20/18 05:58 Dose: 0 mcg/min, 0 mls/hr Magnesium Sulfate 2 gm/ Premix 50 mls @ 25 mls/hr IV ONETIME ONE Stop: 03/22/18 10:59 Last Admin: 03/22/18 09:00 Dose: 25 mls/hr Lactobacillus Rhamnosus (Culturelle) 1 cap PO BID [facility] Magnesium Oxide (Magnesium Oxide) 400 mg PO BID [facility] Last Admin: 03/22/18 08:32 Dose: 400 mg Melatonin (Melatonin) 9 mg PO BEDTIME PRN PRN Reason: Insomnia Last Admin: 03/22/18 02:06 Dose: 9 mg Ondansetron HCl (Zofran Odt) 4 mg PO Q6H PRN PRN Reason: Nausea able to take PO Ondansetron HCl (Zofran) 4 mg IV Q6H PRN PRN Reason: Nausea/Vomiting Polyethylene Glycol (Miralax) 17 gm PO DAILY [facility] Last Admin: 03/22/18 09:08 Dose: Not Given Potassium Chloride (Klor-Con M20) 20 meq PO BID [facility] Tramadol HCl (Ultram) 50 mg PO Q6H PRN PRN Reason: Pain Last Admin: 03/18/18 00:05 Dose: 50 mg Discontinued Medications Amiodarone HCl (Cordarone) 150 mg IVPUSH ONETIME ONE; Protocol Stop: 03/18/18 12:01 Last Admin: 03/18/18 12:59 Dose: 150 mg Azithromycin (Zithromax) 500 mg PO ONETIME ONE Stop: 03/15/18 11:01 Last Admin: 03/15/18 10:51 Dose: 500 mg Azithromycin (Zithromax) 500 mg PO DAILY [facility] Last Admin: 03/17/18 08:49 Dose: 500 mg Digoxin (Lanoxin) 250 mcg IVPUSH ONETIME STA Stop: 03/18/18 06:18 Last Admin: 03/18/18 06:26 Dose: 250 mcg Digoxin (Lanoxin) 250 mcg IVPUSH ONETIME ONE Stop: 03/18/18 07:31 Last Admin: 03/18/18 07:30 Dose: 250 mcg Digoxin (Lanoxin) 125 mcg IVPUSH ONETIME ONE Stop: 03/19/18 10:31 Last Admin: 03/19/18 11:20 Dose: 125 mcg Diltiazem HCl (Cardizem) 30 mg PO Q6H [facility] Last Admin: 03/17/18 19:21 Dose: 30 mg Enoxaparin Sodium (Lovenox) 40 mg SUBCUT DAILY [facility] Last Admin: 03/18/18 08:23 Dose: Not Given Furosemide (Lasix) 20 mg IVPUSH NOW ONE Stop: 03/17/18 12:36 Last Admin: 03/17/18 16:27 Dose: Not Given Furosemide (Lasix) 40 mg IVPUSH NOW ONE Stop: 03/17/18 12:51 Last Admin: 03/17/18 15:35 Dose: 40 mg Furosemide (Lasix) 40 mg IVPUSH NOW ONE Stop: 03/18/18 08:10 Last Admin: 03/18/18 09:21 Dose: 40 mg Furosemide (Lasix) 40 mg IVPUSH NOW ONE Stop: 03/19/18 08:31 Last Admin: 03/19/18 08:35 Dose: 40 mg Furosemide (Lasix) 40 mg IVPUSH NOW ONE Stop: 03/20/18 10:21 Last Admin: 03/20/18 10:30 Dose: 40 mg Furosemide (Lasix) 40 mg IVPUSH NOW ONE Stop: 03/21/18 09:01 Last Admin: 03/21/18 08:58 Dose: 40 mg Furosemide (Lasix) 40 mg IVPUSH NOW ONE Stop: 03/22/18 09:01 Last Admin: 03/22/18 08:31 Dose: 40 mg Sodium Chloride (Normal Saline) 1,000 mls @ 500 mls/hr IV ASDIRECTED [facility] Last Admin: 03/15/18 09:18 Dose: 500 mls/hr Ceftriaxone Sodium 1 gm/ (Sodium Chloride) 50 mls @ 100 mls/hr IV ONETIME ONE Stop: 03/15/18 09:57 Last Admin: 03/15/18 10:24 Dose: 100 mls/hr Ceftriaxone Sodium 1 gm/ (Sodium Chloride) 50 mls @ 100 mls/hr IV Q24H [facility] Last Admin: 03/16/18 11:12 Dose: 100 mls/hr Sodium Chloride (Normal Saline) 1,000 mls @ 50 mls/hr IV ASDIRECTED [facility] Last Admin: 03/17/18 17:03 Dose: 50 mls/hr Levofloxacin/Dextrose 750 mg/ (Premix) 150 mls @ 100 mls/hr IV Q48H [facility] Last Admin: 03/17/18 10:42 Dose: 100 mls/hr Piperacillin/Tazobactam/ (Dextrose 3.375 gm/ Premix) 50 mls @ 100 mls/hr IV Q6H [facility] Last Admin: 03/22/18 06:11 Dose: 100 mls/hr Sodium Chloride (Normal Saline) 500 mls @ 500 mls/hr IV ONETIME ONE Stop: 03/17/18 14:44 Last Admin: 03/17/18 14:00 Dose: 500 mls/hr Potassium Chloride 20 meq/Lidocaine HCl 2 ml/ Sodium Chloride 112 mls @ 56 mls/ hr IV Q2H [facility] Stop: 03/18/18 13:59 Last Admin: 03/18/18 12:14 Dose: 56 mls/hr Amiodarone HCl 450 mg/ (Dextrose/Water) 250 mls @ 33.33 mls/hr IV ASDIRECTED [facility]; Protocol Stop: 03/19/18 14:30 Last Admin: 03/18/18 21:32 Dose: 0.5 mg/min, 16.66 mls/hr Doxycycline Hyclate 100 mg/ (Sodium Chloride) 100 mls @ 100 mls/hr IV Q12H [facility] Last Admin: 03/22/18 00:56 Dose: 100 mls/hr Magnesium Sulfate 2 gm/ Premix 50 mls @ 12.5 mls/hr IV ONETIME ONE Stop: 03/20/18 03:22 Last Admin: 03/19/18 23:45 Dose: 12.5 mls/hr Magnesium Sulfate 2 gm/ Premix 50 mls @ 25 mls/hr IV ONETIME ONE Stop: 03/20/18 10:59 Last Admin: 03/20/18 09:58 Dose: 25 mls/hr Ibuprofen (Motrin) 400 mg PO ONETIME ONE Stop: 03/17/18 09:01 Last Admin: 03/17/18 08:51 Dose: Not Given Metoprolol Tartrate (Lopressor) 50 mg PO DAILY [facility] Last Admin: 03/17/18 08:50 Dose: 50 mg Metoprolol Tartrate (Lopressor) 5 mg IVPUSH ONETIME ONE Stop: 03/15/18 23:45 Last Admin: 03/15/18 23:53 Dose: 5 mg Potassium Chloride (Klor-Con M20) 40 meq PO ONETIME ONE Stop: 03/19/18 08:31 Last Admin: 03/19/18 08:36 Dose: 40 meq Potassium Chloride (Klor-Con M20) 40 meq PO ONETIME ONE Stop: 03/19/18 23:24 Last Admin: 03/19/18 23:44 Dose: 40 meq Potassium Chloride (Klor-Con M20) 40 meq PO ONETIME ONE Stop: 03/21/18 09:01 Last Admin: 03/21/18 08:58 Dose: 40 meq Potassium Chloride (Klor-Con M20) 40 meq PO ONETIME ONE Stop: 03/21/18 16:01 Last Admin: 03/21/18 16:35 Dose: 40 meq Potassium Chloride (Klor-Con M20) 40 meq PO ONETIME ONE Stop: 03/22/18 08:31 Last Admin: 03/22/18 08:29 Dose: 40 meq - Exam Quality Assessment: Supplemental Oxygen, Central Line/PICC, DVT Prophylaxis. No : Urine Catheter General: Alert, Oriented, Cooperative, No Acute Distress Lungs: Clear to Auscultation, Normal Respiratory Effort Cardiovascular: Regular Rate, Irregular Rhythm, Murmurs. No: Tachycardia GI/Abdominal Exam: Soft, Non-Tender, No Organomegaly, No Distention Extremities: Non-Tender, No Pedal Edema Skin: Warm, Dry, Intact - Problem List Review Problem List Initiated/Reviewed/Updated: Yes - My Orders Last 24 Hours: My Active Orders 03/22/18 00:22 Melatonin 9 mg PO BEDTIME PRN 03/22/18 09:00 Magnesium Oxide 400 mg PO BID Magnesium Sulfate/Water [Magnesium Sulfate 2 GM in Water 50 ML] 2 gm Premix Bag 1 bag IV ONETIME 03/22/18 09:05 Patient Status [ADT] Routine 03/22/18 09:15 Amoxicillin/Clavulanate K [Augmentin 875 MG/125 MG] 1 tab PO Q12HR Lactobacillus Rhamnosus GG [Culturelle] 1 cap PO BID 03/22/18 21:00 Doxycycline [Vibramycin] 100 mg PO BID Potassium Chloride [Klor-Con M20] 20 meq PO BID 03/23/18 05:00 BASIC METABOLIC PANEL,BMP [CHEM] Timed MAGNESIUM [CHEM] Timed 03/23/18 09:00 Furosemide [Lasix] 40 mg PO DAILY - Plan Plan:: ASSESSMENT AND PLAN - Bilateral pneumonia- community acquired pneumonia with possible contribution from hypoventilation with recent chest wall trauma and fluid overload. She has been afebrile over the past 5 days, now off of IV norepinephrine with stable blood pressures. blood cultures have remained negative thus far. -Discontinue Zosyn and doxycycline -Transition to oral antibiotics with Augmentin and doxycycline -Follow-up blood cultures Hypoxic and hypercapnic respiratory failure-likely secondary to pneumonia, there also appears to be a component of pulmonary edema. Echocardiogram showed normal left ventricular systolic function, concentric left ventricular hypertrophy, severe mitral stenosis and mitral regurgitation. -Supplemental oxygen as needed -Continue daily IV furosemide Severe mitral valve disease-likely contributing to current respiratory compromise and decline in functional status over the past few months Atrial fibrillation with rapid ventricular response- rate control remains good following amiodarone infusion and initiation of oral amiodarone. Discussed anticoagulation with patient and family, will hold on initiating anticoagulation at this time because of her fairly high fall risk. -Amiodarone 400 mg by mouth daily for 2 weeks, then 200 mg by mouth daily thereafter -Hold anticoagulation because of high fall risk Coronary artery disease - history of previous myocardial infarction and stenting about 9 years ago. No active anginal symptoms at this time. -Continue medical management Chronic kidney disease stage III-renal function has remained stable on current diuretic therapy -Continue to closely monitor renal function and urine output Maintenance issues - - DVT prophylaxis - Lovenox held because of thrombocytopenia, SCUDs - GI prophylaxis - not indicated - Nutrition - heart healthy - Mullen catheter - to closely monitor urine output CODE STATUS - DNR/DNI Admission justification - This patient will be admitted for inpatient services and is medically appropriate meeting medical necessity for inpatient admission as outlined in my documentation. I reasonably expect the patient will require inpatient services that span a period time over 2 midnights. I reasonably expect this patient to be discharged or transferred within 96 hours [facility]. Disposition - anticipate discharge to [facility] in 2-3 days Primary care physician - [facility] medicine group
[2018-03-22] MEDS: Lactobacillus Rhamnosus GG (Probiotic) Cap PO SCH ×2 (10:50→22:18)
[2018-03-22] MEDS: Amoxicillin/Clavulanate K 875-125 MG Tab PO SCH ×2 (10:55→22:18)
[2018-03-22] MEDS: Potassium Chloride 20 MEQ Tab.ER PO SCH (22:18)
[2018-03-22] MEDS: Doxycycline 100 MG Cap PO SCH (22:19)
[2018-03-23] MEDS: Lactobacillus Rhamnosus GG (Probiotic) Cap PO SCH (08:18)
[2018-03-23] MEDS: Potassium Chloride 20 MEQ Tab.ER PO SCH (08:18)
[2018-03-23] MEDS: Amoxicillin/Clavulanate K 875-125 MG Tab PO SCH (08:18)
[2018-03-23] MEDS: Magnesium Oxide 400 MG Tab PO SCH (08:18)
[2018-03-23] MEDS: Amiodarone 200 MG Tab PO SCH (08:18)
[2018-03-23] MEDS: Doxycycline 100 MG Cap PO SCH (08:19)
[2018-03-23] MEDS: Polyethylene Glycol 3350 Powder 17 GM Packet PO SCH (08:46)
[2018-03-23] MEDS ORDERED: Furosemide 40 MG Tab PO SCH (09:00)
[2018-03-23 10:45] VITALS: BP 119/68
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
== END 2018-03-23 15:20 | DRG 871 ==
LOC: JP.ED 08:00 → JP.MS 10:47 → JP.ICU 03-17 10:53 → JP.MS 03-22 11:50
PROVIDERS: ADMIT Internal Medicine; ATTEND Hospitalist
PROC: 3E033XZ Introduction of Vasopressor into Peripheral Vein, Percutaneous Approach (ICD-10-PCS; 2018-03-17)
PROC: 5A09457 Assistance with Respiratory Ventilation, 24-96 Consecutive Hours, Continuous Positive Airway Pressure (ICD-10-PCS; 2018-03-17)
PROC: 02H633Z Insertion of Infusion Device into Right Atrium, Percutaneous Approach (ICD-10-PCS; principal; 2018-03-18)
DX: A41.9 Sepsis, unspecified organism (principal); J18.1 Lobar pneumonia, unspecified organism; J96.01 Acute respiratory failure with hypoxia; I10 Essential (primary) hypertension; J96.92 Respiratory failure, unspecified with hypercapnia; J44.0 Chronic obstructive pulmonary disease with (acute) lower respiratory infection; I24.8 Other forms of acute ischemic heart disease; N17.9 Acute kidney failure, unspecified; J81.1 Chronic pulmonary edema; I25.10 Atherosclerotic heart disease of native coronary artery without angina pectoris; E78.00 Pure hypercholesterolemia, unspecified; K59.09 Other constipation; G89.29 Other chronic pain; M54.9 Dorsalgia, unspecified; M19.90 Unspecified osteoarthritis, unspecified site; H91.90 Unspecified hearing loss, unspecified ear; I27.20 Pulmonary hypertension, unspecified; R32 Unspecified urinary incontinence; Z66 Do not resuscitate; D64.9 Anemia, unspecified; J31.0 Chronic rhinitis; R11.0 Nausea; R50.9 Fever, unspecified; R53.1 Weakness; R53.81 Other malaise; I34.0 Nonrheumatic mitral (valve) insufficiency; I12.9 Hypertensive chronic kidney disease with stage 1 through stage 4 chronic kidney disease, or unspecified chronic kidney disease; N18.3 Chronic kidney disease, stage 3 (moderate); I48.0 Paroxysmal atrial fibrillation; E87.6 Hypokalemia; E87.70 Fluid overload, unspecified; S20.219S Contusion of unspecified front wall of thorax, sequela; V49.9XXS Car occupant (driver) (passenger) injured in unspecified traffic accident, sequela; I25.2 Old myocardial infarction; Z96.641 Presence of right artificial hip joint; Z95.5 Presence of coronary angioplasty implant and graft; Z88.8 Allergy status to other drugs, medicaments and biological substances; Z99.81 Dependence on supplemental oxygen; Z79.899 Other long term (current) drug therapy; Z86.73 Personal history of transient ischemic attack (TIA), and cerebral infarction without residual deficits
CPT/HCPCS: 36415; 71046 ×2; 80053; 81001; 83605; 85025; 87040 ×2; 96361; 96365; 99284; 99285; J0696; J7030; J7050; 36600; 71045; 71045-26; 80048; 80162; 82803; 83735; 84132; 84484; 85027; 93005; 93306; 94640; 94660; 97110-GP; 97116-GP; 97161-GP; 97530-GP; A9270-GY; J0282; J1160; J1642; J1940; J1956; J2543; J3475; J3480; J3490; J7040; J7060